=== PATIENT | male | born 1955 | race Caucasian/White ===

== ENCOUNTER 2017-07-27 06:38 | Day surgery (SDC) | payer OTHER ==
[~2017-07-27] VITALS: Ht 175.3 cm; Wt 98.7 kg
[~2017-07-27 06:38] MED LIST: ASPI81EC PO; Aspirin EC81 MG; CLEM1.34; CORGARD20 MG PO; CYAN500 PO; CYCL10 PO; DIPATR PO; DULO30 PO; GABA300 PO; GLIP10; Glipizide ER5 MG PO; Glucophage1000 MG PO; INS70/30PN SC; INSUASPI SC; INSULANPEN SC; LEVFLO500 PO; LOSA50 PO; LOVA20; Loperamide2 MG PO; META800 PO; METF500 PO; METF500C PO; NAPR550 PO; Novolog Fl100 UNIT/1 SC; OXYACE5T PO; OXYC5 PO; PARO10 PO; PARO20 PO; PARO25 PO; PRAV20; PRAV20 PO; Pravachol40 MG PO; Prednisone20 MG PO; RXNAPNA550 PO; Seroquel Xr150 MG PO; TRAM50 PO; VITAMINS A-D-E1 EACH PO; Zofran Odt4 MG SL
[2018-05-17] MEDS ORDERED: CLARITIN10 MG PO (22:33)
== END 2017-07-27 08:42 | disposition home or self-care (01) ==
LOC: ORSCSDS 06:38
PROVIDERS: Internal Medicine Gastroenterology
PROC: 0DJ08ZZ Inspection of Upper Intestinal Tract, Via Natural or Artificial Opening Endoscopic (ICD-10-PCS; principal; 2017-07-27 08:00)
DX: I85.00 Esophageal varices without bleeding (principal); K76.6 Portal hypertension; K31.89 Other diseases of stomach and duodenum; E11.9 Type 2 diabetes mellitus without complications; I10 Essential (primary) hypertension; E78.5 Hyperlipidemia, unspecified; Z87.891 Personal history of nicotine dependence; K74.60 Unspecified cirrhosis of liver; Z79.82 Long term (current) use of aspirin; Z79.4 Long term (current) use of insulin; Z79.899 Other long term (current) drug therapy
CPT/HCPCS: 82947; J0330; J1980; J2405

== ENCOUNTER 2017-10-12 09:04 | Observation (INO) | payer OTHER ==
[~2017-10-12] VITALS: Ht 175.3 cm; Wt 101.0 kg
[2017-10-12 09:44] LABS: PCO2 Arterial 40.1 mmHg (35-45); PO2 Arterial 67.4 mmHg (80-100)
[2017-10-12 09:46] LABS: Alanine Aminotransfer (ALT/SGP 46 U/L (12-78); Albumin, Blood 2.3 g/dL (3.4-5.0); Albumin/Globulin Ratio 0.4 (0.8-1.8); Alk Phos 139 U/L (50-136); Anion Gap 8 mmol/L (6-16); Aspartate Aminotrans (AST/SGOT 53 U/L (12-37); Bilirubin, Total 0.7 mg/dL (0.1-1.0); Blood Urea Nitrogen 18 mg/dL (8-24); Bun/Creatinine Ratio 24.5 (12.0-20.0); CO2, Blood 24 mmol/L (21-32); Calcium, Blood 8.7 mg/dL (8.5-10.1); Chloride, Blood 107 mmol/L (98-108); Creatinine, Blood 0.74 mg/dL (0.60-1.20); Globulin, Blood 5.5 g/dL (2.2-4.0); Glomerular Filtration Rate >60 (60-); Glucose, Blood 168 mg/dL (70-99); Potassium, Blood 3.7 mmol/L (3.5-5.5); Sodium, Blood 139 mmol/L (136-145); Total Protein, Blood 7.8 g/dL (6.4-8.2); Troponin I <0.015 ng/mL (0.000-0.040)
[2017-10-12 09:58] LABS: Influenza A Negative (NEGATIVE); Influenza B Negative (NEGATIVE)
[2017-10-12 10:45] LABS: BASOPHILS ABSOLUTE AUTO 0.02 K/mm3 (0.00-0.23); BASOPHILS PERCENT AUTO 0 % (0-2); EOSINOPHILS ABSOLUTE AUTO 0.26 K/mm3 (0.00-0.68); EOSINOPHILS PERCENT AUTO 5 % (0-6); Hematocrit 37.2 % (37.0-53.0); Hemoglobin 12.5 g/dL (13.5-17.5); IMMATURE GRAN ABSOLUTE AUTO 0.01 K/mm3 (0.00-0.10); IMMATURE GRAN PERCENT AUTO 0 % (0-1); LYMPHOCYTES PERCENT AUTO 42 % (21-46); MONOCYTES ABSOLUTE AUTO 0.21 K/mm3 (0.16-1.47); MONOCYTES PERCENT AUTO 4 % (4-13); Mean Corpuscular HGB 34.6 pg (26.0-34.0); Mean Corpuscular HGB Conc 33.6 g/dL (31.5-36.5); Mean Corpuscular Volume 103 fL (80-100); Mean Platelet Volume 10.6 fL (9.1-12.4); NEUTROPHILS ABSOLUTE AUTO 2.59 K/mm3 (1.96-9.15); NEUTROPHILS PERCENT AUTO 49 % (41-73); Platelet Count 222 K/mm3 (150-400); RDW Standard Deviation 53.5 fL (35.1-46.3); Red Blood Cell Count 3.61 M/mm3 (4.30-5.90); White Blood Cell Count 5.29 K/mm3 (4.00-11.30)
[2017-10-12] MEDS ORDERED: CEFD300 PO (15:36)
[2017-10-12] MEDS ORDERED: Advair Hfa 230-12 GM INH (15:38)
[2017-10-12] MEDS ORDERED: FLONASE ALLERG9.9 ML (15:39)
[2017-10-12] MEDS ORDERED: NADO40 PO (15:41)
[2017-10-12] MEDS ORDERED: PARO20 PO (15:43)
[2017-10-12] MEDS ORDERED: TRAM50 PO (15:44)
[2017-10-12] MEDS ORDERED: Fish Oil 10001000 MG PO (15:48)
== END 2017-10-15 11:05 | disposition home or self-care (01) ==
LOC: ER 09:04 → MEDS 09:05 → ENPENDDIS 10-15 09:51 → MEDS 10-15 11:05
PROVIDERS: Emergency Medicine
DX: R07.9 Chest pain, unspecified (principal); E11.9 Type 2 diabetes mellitus without complications; E78.5 Hyperlipidemia, unspecified; I10 Essential (primary) hypertension; G89.29 Other chronic pain; M54.5 Low back pain; K74.60 Unspecified cirrhosis of liver; K21.9 Gastro-esophageal reflux disease without esophagitis; F32.9 Major depressive disorder, single episode, unspecified; Z90.49 Acquired absence of other specified parts of digestive tract; Z87.891 Personal history of nicotine dependence; Z79.4 Long term (current) use of insulin; Z79.899 Other long term (current) drug therapy
CPT/HCPCS: 36415; 36600; 71046; 78452; 80053; 82803; 82947; 83880; 84484; 85025; 87804; 93005; 93010; 93017; 94762; 96372; 99285; A9500; G0378; J0280; J1650; J1815; J2785

== ENCOUNTER 2018-08-02 09:26 | Inpatient (IN) | payer OTHER ==
[2018-08-01 13:35] LABS: BASOPHILS ABSOLUTE AUTO 0.05 K/mm3 (0.00-0.23); BASOPHILS PERCENT AUTO 1 % (0-2); EOSINOPHILS ABSOLUTE AUTO 0.36 K/mm3 (0.00-0.68); EOSINOPHILS PERCENT AUTO 7 % (0-6); Hematocrit 38.8 % (37.0-53.0); Hemoglobin 13.4 g/dL (13.5-17.5); IMMATURE GRAN ABSOLUTE AUTO 0.01 K/mm3 (0.00-0.10); IMMATURE GRAN PERCENT AUTO 0 % (0-1); LYMPHOCYTES ABSOLUTE AUTO 2.13 K/mm3 (0.84-5.20); LYMPHOCYTES PERCENT AUTO 40 % (21-46); MONOCYTES ABSOLUTE AUTO 0.38 K/mm3 (0.16-1.47); MONOCYTES PERCENT AUTO 7 % (4-13); Mean Corpuscular HGB 35.6 pg (26.0-34.0); Mean Corpuscular HGB Conc 34.5 g/dL (31.5-36.5); Mean Corpuscular Volume 103 fL (80-100); Mean Platelet Volume 10.7 fL (9.1-12.4); NEUTROPHILS ABSOLUTE AUTO 2.36 K/mm3 (1.96-9.15); NEUTROPHILS PERCENT AUTO 45 % (41-73); Platelet Count 136 K/mm3 (150-400); RDW Coefficient Variation 13.1 % (11.7-14.2); RDW Standard Deviation 49.5 fL (35.1-46.3); Red Blood Cell Count 3.76 M/mm3 (4.30-5.90); White Blood Cell Count 5.29 K/mm3 (4.00-11.30)
[2018-08-01 13:51] LABS: International Normalized Ratio 1.14; Prothrombin Time Results 11.7 Sec (9.7-11.5)
[2018-08-01 16:54] LABS: Anion Gap 7 mmol/L (6-16); Blood Urea Nitrogen 16 mg/dL (8-24); Bun/Creatinine Ratio 15.7 (12.0-20.0); CO2, Blood 24 mmol/L (21-32); Calcium, Blood 8.2 mg/dL (8.5-10.1); Chloride, Blood 101 mmol/L (98-108); Creatinine, Blood 1.02 mg/dL (0.60-1.20); Glomerular Filtration Rate >60 (60-); Glucose, Blood 348 mg/dL (70-99); Potassium, Blood 4.1 mmol/L (3.5-5.5); Sodium, Blood 132 mmol/L (136-145)
[~2018-08-02] VITALS: Ht 175.3 cm; Wt 101.0 kg
[~2018-08-02 09:26] MED LIST changes: +Advair Hfa 230-12 GM INH; +CEFD300 PO; +CLARITIN10 MG PO; +FLONASE ALLERG9.9 ML; +Fish Oil 10001000 MG PO; +NADO40 PO
--- NOTE | 2018-08-02 12:19 | NUR ---
PT A&O X 3. BILAT HAND GRAIN DRIER AND PLANTAR FLEXES EQUAL. SMILE SYMETRICAL AND TONGUE THRUST MIDLINE. NO ARM OR LEG DRIFT.
--- NOTE | 2018-08-02 12:24 | NUR ---
DR CHOW IN ROOM TO SEE PT.
[2018-08-02] MEDS ORDERED: ASPI325EC PO (14:57)
[2018-08-02] MEDS ORDERED: CLOP75 PO (14:57)
--- NOTE | 2018-08-02 15:13 | NUR ---
MALE PATIENT BROUGHT BY BED TO ICU11. AWAKE AND ALERT, RIGHT GROIN DRESSING DRY. SMALL HEMATOMA AT SITE. SOFT TO PALPATION. EXCELLANT PEDAL PULSES. LUNGS CLEAR USHA. AT BEDSIDE.IV PATENT IN LEFT ARM
--- NOTE | 2018-08-02 15:51 | NUR ---
RIGHT GROIN REMAINS STABLE. NO BLEEING OR ECCYMOSIS. COMP PAIN AT SIE 8/10. MED WITH 2 NORCO TABLETS.
--- NOTE | 2018-08-02 17:32 | NUR ---
WNTS TO GO HOME. REFUSED DINNER AND ONLY TOOK 10 UNITS OF INSULIN. RIGHT GROIN REMAINS STABE AND COMFORTABLE. NO INCREASED BLEEDING OR HEMATOMA.
--- NOTE | 2018-08-02 18:04 | NUR ---
UP TO CHAIR. COMP OF SEVERE BACK PAIN, BUT UP TO CHAIR AND MUCH IMPROVES. GROIN STILL STABLE.
--- NOTE | 2018-08-02 18:37 | NUR ---
IV DCED IN LEFT ARM. PAT SLOWLY DRESSING WITH 'S ASSISTANCE. COMP OF BACK PAIN AND RIGHT GROIN PAIN. PAT HAS VOIDED 210 ML W/O DIFF. ATE 50% OF DINNER.
--- NOTE | 2018-08-02 18:58 | NUR ---
TAKEN TO CAR BY WHEELCHAIR AFTER MED WITH NORCO.
[2018-08-17] MEDS ORDERED: TRAM50 PO (14:05)
[2018-08-17] MEDS ORDERED: Pravastatin Sod40 MG PO (14:05)
[2018-08-17] MEDS ORDERED: Seroquel Xr150 MG PO (14:06)
[2018-08-17] MEDS ORDERED: NADO40 PO (14:07)
[2018-08-17] MEDS ORDERED: Novolog Fl100 UNIT/1 SC (14:08)
[2018-08-17] MEDS ORDERED: INSULANPEN SC (14:09)
[2018-08-17] MEDS ORDERED: DULOXETINE HCL40 MG PO (14:09)
[2018-08-17] MEDS ORDERED: METF500C PO (14:10)
[2018-08-17] MEDS ORDERED: Flonase 0.05% N16 GM (14:11)
[2018-08-17] MEDS ORDERED: Loratadine10 MG PO (14:11)
[2018-08-17] MEDS ORDERED: PSEUDOEPHEDRINE30 MG PO (14:12)
[2018-08-17] MEDS ORDERED: BACL10 PO (14:13)
== END 2018-08-02 18:50 | disposition home or self-care (01) | DRG 253 ==
LOC: MHTC 09:26 → ICUW 11:23
PROVIDERS: ADMIT Radiology Diagnostic Radiology
PROC: 05753DZ Dilation of Right Subclavian Vein with Intraluminal Device, Percutaneous Approach (ICD-10-PCS; principal; 2018-08-02)
DX: I77.1 Stricture of artery (principal); I85.10 Secondary esophageal varices without bleeding; I35.0 Nonrheumatic aortic (valve) stenosis; E78.5 Hyperlipidemia, unspecified; E11.9 Type 2 diabetes mellitus without complications; I12.9 Hypertensive chronic kidney disease with stage 1 through stage 4 chronic kidney disease, or unspecified chronic kidney disease; E11.22 Type 2 diabetes mellitus with diabetic chronic kidney disease; N18.2 Chronic kidney disease, stage 2 (mild); F41.8 Other specified anxiety disorders; K75.81 Nonalcoholic steatohepatitis (NASH); K74.60 Unspecified cirrhosis of liver; E55.9 Vitamin D deficiency, unspecified; Z87.891 Personal history of nicotine dependence; Z79.84 Long term (current) use of oral hypoglycemic drugs
CPT/HCPCS: 36225; 36415; 37236; 75710; 80048; 82947; 85025; 85610; 99152; 99153; C1760; C1769; C1876; C1887; C1894; J1644; J1815; J2250; J3010; J7030; Q9967

== ENCOUNTER 2018-08-26 07:23 | Day surgery (SDC) | payer OTHER ==
[~2018-08-26] VITALS: Ht 175.3 cm; Wt 100.1 kg
[~2018-08-26 07:23] MED LIST changes: +ASPI325EC PO; +BACL10 PO; +CLOP75 PO; +DULOXETINE HCL40 MG PO; +Flonase 0.05% N16 GM; +Loratadine10 MG PO; +PSEUDOEPHEDRINE30 MG PO; +Pravastatin Sod40 MG PO
[2018-08-26] MEDS ORDERED: ASPI325 (08:17)
--- NOTE | 2018-08-26 08:46 | NUR ---
08/26/18 0846 Cheri Butt PT RESTING IN PREOP WITH CALL LIGHT WITHIN REACH. PREOP TEACHING COMPLETED
--- NOTE | 2018-08-26 15:53 | NUR ---
08/26/18 1553 Cheri Butt DELAYED ENTRY 0950 0902 BP 90/54. DR WHEELER AND FLUIDS WIDE. 0903 BP CUFF CHANGED FROM RADIAL TO BICEP. 09 BP 72/54. DR WHEELER AND EPHEDRINE GIVEN PER ORDERS. SYSTOLIC CONTINUED TO STAY MID 80'S TO LOW 90'S WITH DIASTOLIC >51. A SECOND DOSE OF EPHEDRINE PER ORDERS 908. LAST PROPOFOL DOSE 09. SATS BEGAN TO RIDE 89-91%. OXYGEN INCREASED INTERMITTENTLY VIA NASAL CANNULA WHILE MANAGING BP. AFTER SATS CONTINUED TO RANGE 90-91%, A NONREBREATHER WAS PLACED WITH 10L. 09 BP 90/51. OK TO CONTINUE SEDATION PER DR. PT BEGAN TO MOVE AND GROAN AT 0918. 2MG VERSED GIVEN PER ORDERS. 918 BP 89/52. DR WHEELER AND DR INSTRUCTED TO CONTINUE SEDATION. NO FURTHER ORDERS FOR EPHEDRINE AT THIS TIME. 920 PT SNORING AND BEGAN TO OBSTRUCT. CHIN LIFT AND JAW THRUST PERFORMED. 923 ORAL AIRWAY PLACED AND SATS RAISED TO 98% WITH NONREBREATHER STILL IN PLACE. 925 BP 74/46. DR WHEELER. DR INSTRUCTED TO STOP SEDATION AND TO RECHECK BP. 926 BP 82/43. NO FURTHER ORDERS FOR EPHEDRINE IN OR. ORDERS GIVEN TO RECHECK BP IN SDU AND TO GIVE EPHEDRINE FOR SYSTOLIC <74. VSS IN SDU. SEE VITALS IN
== END 2018-08-26 10:12 | disposition home or self-care (01) ==
LOC: ORSCSDS 07:23
PROVIDERS: Internal Medicine Gastroenterology
PROC: 0DBN8ZX Excision of Sigmoid Colon, Via Natural or Artificial Opening Endoscopic, Diagnostic (ICD-10-PCS; principal; 2018-08-26 08:45)
PROC: 0DBM8ZX Excision of Descending Colon, Via Natural or Artificial Opening Endoscopic, Diagnostic (ICD-10-PCS; principal; 2018-08-26 08:45)
PROC: 0DBL8ZX Excision of Transverse Colon, Via Natural or Artificial Opening Endoscopic, Diagnostic (ICD-10-PCS; principal; 2018-08-26 08:45)
PROC: 0DJ08ZZ Inspection of Upper Intestinal Tract, Via Natural or Artificial Opening Endoscopic (ICD-10-PCS; principal; 2018-08-26 08:45)
DX: Z12.11 Encounter for screening for malignant neoplasm of colon (principal); I85.00 Esophageal varices without bleeding; D12.3 Benign neoplasm of transverse colon; D12.4 Benign neoplasm of descending colon; D12.5 Benign neoplasm of sigmoid colon; K25.0 Acute gastric ulcer with hemorrhage; K26.9 Duodenal ulcer, unspecified as acute or chronic, without hemorrhage or perforation; E78.5 Hyperlipidemia, unspecified; K76.6 Portal hypertension; K31.89 Other diseases of stomach and duodenum; K64.8 Other hemorrhoids; Z87.891 Personal history of nicotine dependence; I10 Essential (primary) hypertension; E11.9 Type 2 diabetes mellitus without complications; Z79.84 Long term (current) use of oral hypoglycemic drugs; Z79.4 Long term (current) use of insulin; Z79.899 Other long term (current) drug therapy
CPT/HCPCS: 82947; 88305; J2250; J7120

== ENCOUNTER 2019-03-02 20:00 | Emergency (ER) | payer OTHER ==
[~2019-03-02] VITALS: Ht 175.3 cm; Wt 102.1 kg
[~2019-03-02 20:00] MED LIST changes: +ASPI325
[2019-03-02] MEDS ORDERED: CLOP75 PO (20:24)
[2019-03-02] MEDS ORDERED: Humalog100 UNIT/1 (20:25)
[2019-03-02 20:35] LABS: BASOPHILS ABSOLUTE AUTO 0.03 K/mm3 (0.00-0.23); BASOPHILS PERCENT AUTO 0 % (0-2); EOSINOPHILS ABSOLUTE AUTO 0.16 K/mm3 (0.00-0.68); EOSINOPHILS PERCENT AUTO 2 % (0-6); Hematocrit 40.6 % (37.0-53.0); IMMATURE GRAN ABSOLUTE AUTO 0.02 K/mm3 (0.00-0.10); IMMATURE GRAN PERCENT AUTO 0 % (0-1); LYMPHOCYTES ABSOLUTE AUTO 2.87 K/mm3 (0.84-5.20); LYMPHOCYTES PERCENT AUTO 42 % (21-46); MONOCYTES ABSOLUTE AUTO 0.47 K/mm3 (0.16-1.47); MONOCYTES PERCENT AUTO 7 % (4-13); Mean Corpuscular HGB 36.5 pg (26.0-34.0); Mean Corpuscular HGB Conc 34.5 g/dL (31.5-36.5); Mean Corpuscular Volume 106 fL (80-100); Mean Platelet Volume 11.4 fL (9.1-12.4); NEUTROPHILS ABSOLUTE AUTO 3.33 K/mm3 (1.96-9.15); NEUTROPHILS PERCENT AUTO 49 % (41-73); Platelet Count 129 K/mm3 (150-400); RDW Coefficient Variation 14.5 % (11.7-14.2); RDW Standard Deviation 56.6 fL (35.1-46.3); Red Blood Cell Count 3.84 M/mm3 (4.30-5.90); White Blood Cell Count 6.88 K/mm3 (4.00-11.30)
[2019-03-02 20:48] LABS: Alanine Aminotransfer (ALT/SGP 62 U/L (12-78); Albumin, Blood 2.8 g/dL (3.4-5.0); Albumin/Globulin Ratio 0.5 (0.8-1.8); Alk Phos 145 U/L (50-136); Anion Gap 7 mmol/L (6-16); Aspartate Aminotrans (AST/SGOT 58 U/L (12-37); Bilirubin, Total 1.3 mg/dL (0.1-1.0); Blood Urea Nitrogen 28 mg/dL (8-24); Bun/Creatinine Ratio 13.3 (12.0-20.0); CO2, Blood 26 mmol/L (21-32); Calcium, Blood 8.4 mg/dL (8.5-10.1); Chloride, Blood 98 mmol/L (98-108); Creatinine, Blood 2.11 mg/dL (0.60-1.20); Ethanol (Alcohol), Blood, Med <3 mg/dL; Globulin, Blood 5.2 g/dL (2.2-4.0); Glomerular Filtration Rate 34 (60-); Glucose, Blood 481 mg/dL (70-99); Potassium, Blood 5.3 mmol/L (3.5-5.5); Sodium, Blood 131 mmol/L (136-145)
[2019-03-02 21:32] LABS: Troponin I <0.015 ng/mL (0.000-0.040)
[2019-03-02 21:59] LABS: Source, Urine Clean Catch
[2019-03-02 22:02] LABS: Bilirubin, Urine Neg (Neg); Blood, Urine Neg (Neg); Glucose Qualitative, Urine 4+ (Neg); Ketones, Urine Neg (Neg); Leukocyte Esterase, Urine Neg (Neg); Nitrite, Urine Neg (Neg); Protein, Urine 1+ (Neg); Urobilinogen, Urine 2+ (Normal)
[2019-03-02 22:14] LABS: Appearance, Urine Clear (Clear); Color, Urine Yellow (P-Yellow)
[2019-03-02 22:25] LABS: U Amphetamine Screen Not Detected; U Barbituate Screen Not Detected; U Benzodiazapine Screen Not Detected; U Buprenorphine Screen Not Detected; U Cannabinoids Screen Not Detected; U Cocaine Screen Not Detected; U Methadone Screen Not Detected; U Methamphetamine Screen Not Detected; U Opiates Screen Not Detected; U Oxycodone Screen Not Detected; U Phencyclidine Screen Not Detected; U Propoxyphene Screen Not Detected
== END 2019-03-02 23:21 | disposition home or self-care (01) ==
LOC: ER 20:00
PROVIDERS: Emergency Medicine
DX: N17.9 Acute kidney failure, unspecified (principal); E86.0 Dehydration; G89.29 Other chronic pain; E11.9 Type 2 diabetes mellitus without complications; Z87.891 Personal history of nicotine dependence
CPT/HCPCS: 71046; 80053; 82947; 83690; 84443; 84484; 85025; 93005; 93010; 99284-25; G0480; J7120

== ENCOUNTER 2019-06-03 04:13 | Inpatient (IN) | payer OTHER ==
[~2019-06-03] VITALS: Ht 175.3 cm; Wt 106.9 kg
[~2019-06-03 04:13] MED LIST changes: +Humalog100 UNIT/1
[2019-06-03 04:55] LABS: BASOPHILS ABSOLUTE AUTO 0.04 K/mm3 (0.00-0.23); BASOPHILS PERCENT AUTO 0 % (0-2); EOSINOPHILS ABSOLUTE AUTO 0.12 K/mm3 (0.00-0.68); EOSINOPHILS PERCENT AUTO 1 % (0-6); Hematocrit 36.7 % (37.0-53.0); Hemoglobin 12.2 g/dL (13.5-17.5); IMMATURE GRAN ABSOLUTE AUTO 0.03 K/mm3 (0.00-0.10); IMMATURE GRAN PERCENT AUTO 0 % (0-1); LYMPHOCYTES ABSOLUTE AUTO 2.96 K/mm3 (0.84-5.20); LYMPHOCYTES PERCENT AUTO 29 % (21-46); MONOCYTES ABSOLUTE AUTO 0.41 K/mm3 (0.16-1.47); MONOCYTES PERCENT AUTO 4 % (4-13); Mean Corpuscular HGB 35.4 pg (26.0-34.0); Mean Corpuscular HGB Conc 33.2 g/dL (31.5-36.5); Mean Corpuscular Volume 106 fL (80-100); Mean Platelet Volume 10.7 fL (9.1-12.4); NEUTROPHILS ABSOLUTE AUTO 6.53 K/mm3 (1.96-9.15); NEUTROPHILS PERCENT AUTO 65 % (41-73); Platelet Count 182 K/mm3 (150-400); RDW Coefficient Variation 13.2 % (11.7-14.2); RDW Standard Deviation 51.2 fL (35.1-46.3); Red Blood Cell Count 3.45 M/mm3 (4.30-5.90); White Blood Cell Count 10.09 K/mm3 (4.00-11.30)
[2019-06-03 05:13] LABS: Troponin I <0.015 ng/mL (0.000-0.040)
[2019-06-03 05:16] LABS: Alanine Aminotransfer (ALT/SGP 39 U/L (12-78); Albumin, Blood 2.3 g/dL (3.4-5.0); Albumin/Globulin Ratio 0.5 (0.8-1.8); Alk Phos 129 U/L (50-136); Anion Gap 9 mmol/L (6-16); Aspartate Aminotrans (AST/SGOT 37 U/L (12-37); Bilirubin, Total 1.1 mg/dL (0.1-1.0); Blood Urea Nitrogen 37 mg/dL (8-24); Bun/Creatinine Ratio 46.4 (12.0-20.0); CO2, Blood 21 mmol/L (21-32); Calcium, Blood 8.4 mg/dL (8.5-10.1); Chloride, Blood 107 mmol/L (98-108); Globulin, Blood 4.8 g/dL (2.2-4.0); Glomerular Filtration Rate >60 (60-); Glucose, Blood 292 mg/dL (70-99); Potassium, Blood 6.1 mmol/L (3.5-5.5); Sodium, Blood 137 mmol/L (136-145); Total Protein, Blood 7.1 g/dL (6.4-8.2)
[2019-06-03] MEDS ORDERED: CYCL10 PO (06:51)
[2019-06-03] MEDS ORDERED: GABA300 PO (06:52)
[2019-06-03] MEDS ORDERED: LOSA50 PO (06:53)
[2019-06-03] MEDS ORDERED: Novolin R100 UNIT/M SC (06:54)
[2019-06-03 07:25] LABS: Calcium, Ionized (POC) 1.04 mmol/L (1.10-1.46); Chloride (POC) 105 mmol/L (98-108); Creatinine (POC) 0.8 mg/dL (0.8-1.3); Glucose (ISTAT POC) 325 mg/dL (70-99); Hemoglobin (POC) 10.2 g/dL (13.5-17.5); Potassium (POC) 6.3 mmol/L (3.5-5.5); Sodium (POC) 136 mmol/L (135-148); Total CO2 (POC) 23 mmol/L (21-32)
--- NOTE | 2019-06-03 11:00 | NUR ---
ADMIT NOTE- PT UNCONCIOUS OBTUNDED ON ARRIVAL TO MEDICAL FLOOR. PT HAS NO S&S OF DISTRESS NOTED AT THE TIME OF ARRIVAL. PT ON 2L O2 VIA NC. PER FAMILY HE IS LIKE THIS AT HOME OFF AND ON. PT BP HAS BEEN LOW SINCE ARRIVAL. PT IS DIABETIC ON ORAL MEDICATIONS AND INSULIN. PRN BLOOD SUGAR CHECKS ORDERED. PT UNABLE TO ANSWER VERBAL QUESTIONS, MEDICAL Hx COMPLETED FROM PAST MEDICAL CHARTING.
--- NOTE | 2019-06-03 12:25 | NUR ---
POC BG SHOWED BG 397. IV INSULIN GIVEN. CALLED DR TORRES HOLD D50 ORDERED AND RECHECK BG IN 30 MINUTES. PRN ORDERT FOR BG AT THIS TIME.
--- NOTE | 2019-06-03 13:20 | NUR ---
PT RECIEVED LOVENOX SHOT ORDERED. AFTER ADMINISTRATION PT SPOUSE TOLD STAFF ABOUT THE PT BLACK STOOL DIARRHEA OVER THE PAST TWO DAYS. WILL CALL AND SPEAK TO DR TORRES ABOUT THIS.
[2019-06-03 14:32] LABS: Potassium, Blood 5.5 mmol/L (3.5-5.5); Troponin I <0.015 ng/mL (0.000-0.040)
--- NOTE | 2019-06-03 14:45 | NUR ---
SPOKE TO DR TORRES- ORDER TO DC LOVENOX AND PLAVIX WELL DC PROPRANOLOL PT BP IS LOW.
[2019-06-03] MEDS ORDERED: TRAM50 PO (17:37)
--- NOTE | 2019-06-03 17:51 | NUR ---
SPOKE TO DR TORRES PT HAD CRITICAL LACTIC AT 2.8. IVF ORDERED EARLIER, NOT STARTED UNTIL; JUST PRIOR TO CRITICAL VALUE NOTIFICATION D/T LOSS OF IV ACCESS. NEW ORDER RECIEVED FOR 2L LR BOLUS STARTED IMMEDIATELY.
--- NOTE | 2019-06-03 17:56 | NUR ---
PT HAS HAD NO CHANGE IN LOC SINCE ADMIT. CRITICAL VALUE POTASSIUM CORRECTED WITH IV INSULIN. PT BG REMAINS IN THE 400 RANGE. LR BOLUS RUNNING INTO NEW 20G IV IN THE LEFT WRIST. NO S&S OF DISTRESS NOTED AT THIS TIME WILL CONT TO MONITOR. PT LAST SBP WAS 106. TELE SHOWS NSR. ACCESSORY MUSCLE USE ON EXHALE WITH EACH RESPERATION. DR AWARE OF ALL. HOME MED REC COMPLETED WITH MED LIST FROM PHARMACY. ADMIT COMPLETED WITH MEDICAL RECORD. GUIAC STOOL ORDERED NO STOOL YET, BLACK SMEAR NOTED IN ATTENDS AT THIS TIME WILL CHANGE SHORTLY.
--- NOTE | 2019-06-03 18:58 | NUR ---
CALLED DR TORRES- PT SBP 10 POINTS LOWER AFTER THE FIRST LITER OF LR WAS INFUSED. RECIEVED AN ORDER FOR 3RD LITER LR BOLUS. NURSE NOTIFY PLACED IN PT CHART MONITOR PT VITALS AFTER 3RD LITER LR IF PT SBP IS 100 OR GREATER THEN PT CAN STAY MEDICAL STATUS HOWEVER; IF SBP IS LESS THAN 100 PT TO BE TRANSFERED TO PCU AND IF AFTER 3 LITERS BOLUS SBP IS LESS THAN 90 PT TO TRANSFER TO ICU. WILL PASS ON TO NIGHT RN IN REPORT.
[2019-06-04 04:18] LABS: Hematocrit 30.7 % (37.0-53.0); Hemoglobin 10.4 g/dL (13.5-17.5); Mean Corpuscular HGB 36.6 pg (26.0-34.0); Mean Corpuscular HGB Conc 33.9 g/dL (31.5-36.5); Mean Corpuscular Volume 108 fL (80-100); Mean Platelet Volume 10.5 fL (9.1-12.4); Platelet Count 168 K/mm3 (150-400); RDW Coefficient Variation 13.8 % (11.7-14.2); RDW Standard Deviation 55.7 fL (35.1-46.3); Red Blood Cell Count 2.84 M/mm3 (4.30-5.90); White Blood Cell Count 11.36 K/mm3 (4.00-11.30)
[2019-06-04 04:43] LABS: Anion Gap 8 mmol/L (6-16); Blood Urea Nitrogen 49 mg/dL (8-24); Bun/Creatinine Ratio 41.2 (12.0-20.0); CO2, Blood 24 mmol/L (21-32); Chloride, Blood 112 mmol/L (98-108); Creatinine, Blood 1.19 mg/dL (0.60-1.20); Glomerular Filtration Rate >60 (60-); Glucose, Blood 260 mg/dL (70-99); Potassium, Blood 3.7 mmol/L (3.5-5.5); Sodium, Blood 144 mmol/L (136-145)
--- NOTE | 2019-06-04 06:23 | NUR ---
END OF SHIFT SUMMARY PT TO UNIT FROM [facility] @7862. PT SOMNOLENT BUT DOES AWAKEN SLIGHLTY TO VERBVAL PROMPTING. PT STATES CORRECT AND KNOWS HE IS IN HOSPITAL. PT HAS SHOWN SOME IMPROVEMENT IN THIS AREA AND HAS BEEN AWAKE ENOUGH TO GET UP TO GO TO BATHROOM. WOULD NOT RECOMMEND THIS DUE TO PT UNSTEADINESS BUT PT WAS RESIDENTIAL TO BATHROOM BEFORE THIS RN MADE IT TO ROOM R/T BED ALARM DELAY. PT HAS PREDOMINANT;LY BEEN RESTING T/O NIGHT. VSS, RR SLOW BUT STILL >12. PT INITIALLY PRESENTED WITH DEEP STOMACH BREATHING BUT THIS HAS DECREASED. LUNGS CRACKLY IN THE BASES. REPEAT CXR COMPLETE. RECEIVED 4444 MLS OF LR SINCE ADMIT. PRODUCING URINE, INCONTINENT. CBGS SHOW IMPROVEMENT WITH Q6 COVERAGE. LACTIC TRENDING DOWN. CALL LIGHT WITHIN REACH. WILL CONTINUE TO MONITOR UNTIL SHIFT CHANGE.
--- NOTE | 2019-06-04 18:31 | NUR ---
SUMMAYR- PT CONTINUES TO BE LETHARGIC. AWAKENS FOR SHORT PERIODS WITH CONSTANT STIM TO STAY AWAKE. ALERT AND ORIENTED TO BIRTHDATE, PLACE, FAMILY, PRESIDENT AND YEAR. SPEECH THICK AND DELAYED, SOMETIMES HAVE TO ASK LOUD MULT TIMES. PT GETS OOB, USUALLY SETTING OFF BED ALARM, CONTINENT OF URINE USING BSC. IVF INFUSING AT 150ML/HR. TOLERATED MASHED POTETOES FOR LUNCH SITTING UP AT EDGE OF BED. TO TIRED TO KEEP AWAKE FOR BREAKFAST, A FEW BITES FOR DINNER. STARTED COUGHING ON CHICKEN AND STOPPED FEED. AMMONIA HIGH AT 98 THIS AM EXPLAINING INCREASED LETHARGY. STARTED LACTALOSE AT LUNCH. NO BM YET, BUT PT SEEMS TO BE AWAKENING MORE READILY, EVEN OPENED EYES WIDE AND CALLED ME BY NAME, READING MY NAME KOBI. CONT Q6 BLOOD SUGARS, WITH SSI COVERAGE.
[2019-06-05 03:57] LABS: Hematocrit 25.3 % (37.0-53.0); Hemoglobin 8.2 g/dL (13.5-17.5); Mean Corpuscular HGB 35.8 pg (26.0-34.0); Mean Corpuscular HGB Conc 32.4 g/dL (31.5-36.5); Mean Platelet Volume 10.4 fL (9.1-12.4); NRBC ABSOLUTE 0.03 K/mm3 (0.00-0.02); NRBC Auto 0.2 /100 WBC (0.0-0.2); Platelet Count 199 K/mm3 (150-400); RDW Coefficient Variation 14.2 % (11.7-14.2); RDW Standard Deviation 56.4 fL (35.1-46.3); Red Blood Cell Count 2.29 M/mm3 (4.30-5.90); White Blood Cell Count 12.42 K/mm3 (4.00-11.30)
[2019-06-05 04:19] LABS: Anion Gap 8 mmol/L (6-16); Blood Urea Nitrogen 39 mg/dL (8-24); Bun/Creatinine Ratio 44.2 (12.0-20.0); CO2, Blood 25 mmol/L (21-32); Calcium, Blood 8.1 mg/dL (8.5-10.1); Chloride, Blood 115 mmol/L (98-108); Creatinine, Blood 0.88 mg/dL (0.60-1.20); Glomerular Filtration Rate >60 (60-); Glucose, Blood 222 mg/dL (70-99); Potassium, Blood 3.8 mmol/L (3.5-5.5); Sodium, Blood 148 mmol/L (136-145)
[2019-06-05 04:21] LABS: Mean Corpuscular Volume 111 fL (80-100)
--- NOTE | 2019-06-05 05:34 | NUR ---
END OF SHIFT SUMMARY NO QACUTE CHANGES THIS SHIFT. LACTULOSE HAS BEEN SUCCESFUL IN PRODUCING MULTIPLE BM'S THIS SHIFT. BM'S DARK BLACK TO BROWN. THIS WAS DISCUSSED WITH PROVIDER. HGB DROPPED, ALSO DISCUSSED WITH PROVIDER AND WILL REDRAW LABS IN THE AM. PT'S MENTATION HAS RAISED AND HAS SHOWN INCREASING AWARENESS BUT WITH THIS HAS COME INCREASED FALL RISK DUE TO GETTING OUT OF BED TO VOID. PT HAS STOOD OUT OF BED AND VOIDED AND HAD BM'S ALL OVER THE FLOOR MULTIPLE TIMES THIS SHIFT. BED ALARM IS IN PLACE AND HAS BEEN THE WHOLE NIGHT. PT RESTLESS AT TIMES. PT DOES FOLLOW SOME DIRECTION BUT MOSTLY JUST GROANS. LR CONTINUE TO INFUSE. ATTENDS IN PLACE. CONSTANTLY CHECKING ON PT TO DETERMINE FALL RISK AND SAFETY. VSS. WILL CONTINUE TO MONITOR UNTIL SHIFT CHANGE.
[2019-06-05 06:29] LABS: Stool Occult Blood Guaiac 1 Pos (Neg)
[2019-06-05 08:58] LABS: Hematocrit 23.7 % (37.0-53.0); Hemoglobin 7.9 g/dL (13.5-17.5); Mean Corpuscular HGB 36.4 pg (26.0-34.0); Mean Corpuscular HGB Conc 33.3 g/dL (31.5-36.5); Mean Corpuscular Volume 109 fL (80-100); Mean Platelet Volume 10.1 fL (9.1-12.4); NRBC ABSOLUTE 0.04 K/mm3 (0.00-0.02); NRBC Auto 0.3 /100 WBC (0.0-0.2); Platelet Count 176 K/mm3 (150-400); RDW Coefficient Variation 14.2 % (11.7-14.2); RDW Standard Deviation 55.1 fL (35.1-46.3); Red Blood Cell Count 2.17 M/mm3 (4.30-5.90); White Blood Cell Count 11.78 K/mm3 (4.00-11.30)
[2019-06-05 13:27] LABS: Bilirubin, Urine Neg (Neg); Blood, Urine Neg (Neg); Glucose Qualitative, Urine 4+ (Neg); Ketones, Urine 2+ (Neg); Leukocyte Esterase, Urine Neg (Neg); Nitrite, Urine Neg (Neg); Protein, Urine Neg (Neg); Source, Urine Clean Catch; Urobilinogen, Urine NORM (Normal)
[2019-06-05 13:30] LABS: Appearance, Urine Clear (Clear); Color, Urine Yellow (P-Yellow)
[2019-06-05 15:48] LABS: Hematocrit 24.8 % (37.0-53.0); Hemoglobin 7.8 g/dL (13.5-17.5)
--- NOTE | 2019-06-05 16:28 | NUR ---
SHIFT SUMMARY PT RESTING IN BED THROUGHOUT THE DAY. LETHARGIC, AWAKES AT TIMES TO VERBAL STIMULI, BUT IS UNABLE TO FOLLOW COMMANDS WHEN ASKED. PT REPOSITIONING HIMSELF SIDE TO SIDE NEEDED, GOOD STRENGTH NOTED. PT UNABLE TO SWALLOW MEDICATIONS DUE TO INABILITY TO FOLLOW INSTRUCTIONS TO SWALLOW LIQUID MEDS. PT IS AN ASPIRATION RISK AT THIS TIME. PT GIVEN LACTULOSE PER RECTUM, PT UNABLE TO HOLD LACTULOSE ENEMA IN RECTUM. DARK STOOL AND LACTULOSE LEAKED FROM RECTUM. PT INCONTINENT OF URINE AND STOOL, PT BECOMES MORE AWAKE WHEN HE NEEDS TO URINATE OR HAVE A BM. WHEN ATTEMPTING TO GET PT UP TO BEDSIDE COMMODE, PT STARTED TO SIT UP, BUT THEN LAID BACK DOWN AND FELL ASLEEP. ATTENDS CHANGED THROUGHOUT THE DAY. LUNG SOUNDS CLEAR, DIMINISHED BASES. DYSPNEA WITH EXERTION. ON ROOM AIR, SATURATIONS 90-94%. PT ELEVATED PULSE RATE WHEN BEING ASSESSED, BUT SETTLES BACK TO NORMAL WHEN RESTING. FAMILY AT BEDSIDE THROUGHOUT THE DAY. WILL CONTINUE TO MONITOR AND REPORT OFF TO VOLUNTEER SERVICES SUPERVISOR RN.
--- NOTE | 2019-06-06 02:08 | NUR ---
RESTRAINTS ORDERS RECEIVED VIA NURSE NOTIFY AND VO FROM DR OG FOR BILATERAL SOFT WRIST RESTRAINTS AND SIDERAILS X4 DUE TO PT AMS AND PULLING AT DOBHOFF. ORDERS RECEIVED @202906/05/19. UNABLE TO PLACE ORDERS IN MEDITECH UNTIL AFTER 06/06/19 SYSTEM WILL NOT ALLOW BACKTIMING OF THIS. UPON DISCUSSION WITH SECURITY PROJECT MANAGER OF PCU AND ICU, REESE, INITIAL ORDERS PLACED ON PAPER COPY FOR 202906/05/19 BUT MEDITECH ORDER STILL HAD TO BE PLACED AT 06/06/19. WILL CHART APPLICATION IN [employer] AT 202906/05/19 AND Q2HR REASSESMENTS STEMMING FROM THAT POINT ON THE EVEN HOURS. PAPER ORDER PLACED IN CHART AND SIGNED BY THIS RN.
[2019-06-06 05:46] LABS: BASOPHILS ABSOLUTE AUTO 0.08 K/mm3 (0.00-0.23); BASOPHILS PERCENT AUTO 1 % (0-2); EOSINOPHILS ABSOLUTE AUTO 0.14 K/mm3 (0.00-0.68); EOSINOPHILS PERCENT AUTO 1 % (0-6); Hematocrit 23.5 % (37.0-53.0); Hemoglobin 7.6 g/dL (13.5-17.5); Mean Corpuscular HGB 35.8 pg (26.0-34.0); Mean Corpuscular HGB Conc 32.3 g/dL (31.5-36.5); Mean Corpuscular Volume 111 fL (80-100); Mean Platelet Volume 10.2 fL (9.1-12.4); NRBC ABSOLUTE 0.14 K/mm3 (0.00-0.02); NRBC Auto 0.9 /100 WBC (0.0-0.2); Platelet Count 211 K/mm3 (150-400); RDW Coefficient Variation 14.9 % (11.7-14.2); RDW Standard Deviation 57.4 fL (35.1-46.3); Red Blood Cell Count 2.12 M/mm3 (4.30-5.90)
[2019-06-06 06:06] LABS: IMMATURE GRAN ABSOLUTE AUTO 0.14 K/mm3 (0.00-0.10); IMMATURE GRAN PERCENT AUTO 1 % (0-1); LYMPHOCYTES ABSOLUTE AUTO 7.13 K/mm3 (0.84-5.20); LYMPHOCYTES PERCENT AUTO 44 % (21-46); MONOCYTES ABSOLUTE AUTO 1.28 K/mm3 (0.16-1.47); MONOCYTES PERCENT AUTO 8 % (4-13); NEUTROPHILS ABSOLUTE AUTO 7.53 K/mm3 (1.96-9.15); NEUTROPHILS PERCENT AUTO 46 % (41-73)
--- NOTE | 2019-06-06 06:18 | NUR ---
PROVIDER LENKA NOTIFIED OF NEW HGB TRENDING DOWN WITH LARGE MELENA BM'S. UPDATED ON MENTAL STATUS PROGRESSION. ORDERS PLACED TO RECHECK CBC @1000
--- NOTE | 2019-06-06 07:46 | NUR ---
END OF SHIFT SUMMARY PT OBTUNDED AT BEGINNING OF SHOFT, HAS SHOPWN IMPROVEMENT. BY THE END OF SHIFT, PT OPENS EYES INTERMITTENRTLY ANSD TRACKS RN IN ROOM. DOBHOFF PLACED ;AST NIGHT BY RIBBON CUTTER [place], BLOODY NOSE RESULTED. CLEANED TO BEST OF ABILITY THAT PT WOULD TOLERTAE. DOBHOFF PLACEMENT CONFIRMED BY PHYSICIAN, GASTRIC MATTER CAN BE ASPIRATED. PT PLACED IN RESTRAINTS DUE TO PULLING AT DOBHOFF, SEE NOTES REGARDING ORDERS. HAS TOELRATED RESTRAINTS WELL. PT HAD 1 VERY LARGE BLACK LIQUID BM AND 1 MEDIUM BM POST LACTULOSE. HGB TRENDED DOWN, SEE NOTE REGARDING PHYSICIAN. PT INCONTINENT, BRIEF IN PLACE. DR OG AWARE OF MENTATION STATUS. ORAL CARE PROVIDED MULTIPLE TIMES L;AST NIGHT. ATTEMPTS MADE TO KEEP PT COMFORTABLE POSSIBLE. PT HAS APEARED TO HAVE RESTED SOME T/O THE NIGHT. SON IN ROOM T/O NIGHT. VSS. REPORT GIVEN TO ONCOMING RN.
[2019-06-06 11:28] LABS: BASOPHILS ABSOLUTE AUTO 0.07 K/mm3 (0.00-0.23); BASOPHILS PERCENT AUTO 1 % (0-2); EOSINOPHILS ABSOLUTE AUTO 0.27 K/mm3 (0.00-0.68); EOSINOPHILS PERCENT AUTO 2 % (0-6); Hematocrit 24.9 % (37.0-53.0); Hemoglobin 7.9 g/dL (13.5-17.5); IMMATURE GRAN ABSOLUTE AUTO 0.09 K/mm3 (0.00-0.10); IMMATURE GRAN PERCENT AUTO 1 % (0-1); LYMPHOCYTES ABSOLUTE AUTO 6.36 K/mm3 (0.84-5.20); LYMPHOCYTES PERCENT AUTO 45 % (21-46); MONOCYTES ABSOLUTE AUTO 1.08 K/mm3 (0.16-1.47); MONOCYTES PERCENT AUTO 8 % (4-13); Mean Corpuscular HGB 36.2 pg (26.0-34.0); Mean Corpuscular HGB Conc 31.7 g/dL (31.5-36.5); Mean Platelet Volume 10.3 fL (9.1-12.4); NEUTROPHILS ABSOLUTE AUTO 6.27 K/mm3 (1.96-9.15); NEUTROPHILS PERCENT AUTO 44 % (41-73); NRBC ABSOLUTE 0.13 K/mm3 (0.00-0.02); NRBC Auto 0.9 /100 WBC (0.0-0.2); Platelet Count 207 K/mm3 (150-400); Red Blood Cell Count 2.18 M/mm3 (4.30-5.90); White Blood Cell Count 14.14 K/mm3 (4.00-11.30)
[2019-06-06 11:32] LABS: Mean Corpuscular Volume 114 fL (80-100)
--- NOTE | 2019-06-06 12:42 | NUR ---
06/06/19 1242 Mariaa Glez PROCEDURE ROOM ENDO #2. MONITOR INTACT WITH CONTINUOUS PULSE OXIMETRY AND INTERMITTENT BP.
--- NOTE | 2019-06-06 13:29 | NUR ---
PATIENT NOT GRIMMACING SINCE IV FENTANYL. VSS. BREATHING 3L O2/NC. AT BEDSIDE STATES HE APPEARS TO BE AT BASELINE. HE MUMBLES WHEN TALKED AND TALKED TO, BUT EYES REMAIN CLOSED.
--- NOTE | 2019-06-06 19:26 | NUR ---
PT HAD SCOPE PROCEDURE TODAY; PT BECOMING MORE ALERT THROUGHOUT DAY; PT ON 3L NC LUNG SOUNDS CLEAR T/O; NO COUGH NOTED; AND FAMILY AT BEDSIDE; LACTULOSE GIVEN THROUGH DOBHOFF UNTIL PT PULLED DOBHOFF AND O2 LINES AT SHIFT CHANGE; PT EXPERIENCING BLACK TARRY STOOLS AND FREQUENT GAS; CALL LIGHT IN REACH BED IN LOWEST POSITION; HAND OFF GIVEN TO NOC RN.
--- NOTE | 2019-06-06 20:00 | NUR ---
FAMILY AT BEDSIDE PT IS RESTING QUIETLY. HE WILL RESPOND TO VERBAL STIMULI. HE WAS ABLE TO RECOGNIZE HIS SON AT THE BEDSIDE BUT MOST OF HIS RESPONSES ARE INAPROPRIATE TO THE CONTENT OF THE QUESTION. THE PT WAS ABLE TO SWALLOW HIS LACTULOSE WITH A FEW BITES OF JELLO SO THE REPLACEMENT OF THE DOBHOFF WAS WITHELD AT THIS TIME. PT IS COMPLIANT WITH CARE, AND SLEEPY AT THIS TIME. HIS SON IS AT THE BEDSIDE. BED ALARM IS ON, CALL LIGHT IN REACH. [facility]
[2019-06-07 04:21] LABS: Hematocrit 23.8 % (37.0-53.0); Hemoglobin 7.6 g/dL (13.5-17.5); Mean Corpuscular HGB 37.1 pg (26.0-34.0); Mean Corpuscular HGB Conc 31.9 g/dL (31.5-36.5); Mean Corpuscular Volume 116 fL (80-100); Mean Platelet Volume 9.7 fL (9.1-12.4); NRBC ABSOLUTE 0.12 K/mm3 (0.00-0.02); NRBC Auto 0.9 /100 WBC (0.0-0.2); Platelet Count 211 K/mm3 (150-400); Red Blood Cell Count 2.05 M/mm3 (4.30-5.90); White Blood Cell Count 12.74 K/mm3 (4.00-11.30)
[2019-06-07 04:42] LABS: Anion Gap 8 mmol/L (6-16); Blood Urea Nitrogen 32 mg/dL (8-24); Bun/Creatinine Ratio 31.1 (12.0-20.0); CO2, Blood 26 mmol/L (21-32); Calcium, Blood 7.9 mg/dL (8.5-10.1); Chloride, Blood 116 mmol/L (98-108); Creatinine, Blood 1.03 mg/dL (0.60-1.20); Glomerular Filtration Rate >60 (60-); Glucose, Blood 223 mg/dL (70-99); Potassium, Blood 3.4 mmol/L (3.5-5.5); Sodium, Blood 150 mmol/L (136-145)
--- NOTE | 2019-06-07 07:25 | NUR ---
SUMMARY PT HAD AN UNEVENTFUL NIGHT. HE IS STARTING TO CLEAR IN MENTATION. HE WAS ABLE TO DRINK SOME FLUIDS AND SPEAK/RECOGNIZE HIS 2 CHILDREN AT THE BEDSIDE. HE WOULD HAVE LONGER PERIODS OF BEING AWAKE AFTER ATTENDS CHANGES. PT HAS BEEN COMPLIANT WITH CARE AND PLEASANT. VSS, 2 LO2 VIA NC, BED ALARM FOR SAFETY. DAUGHTER IS AT THE BEDSIDE THIS AM. REPORT GIVEN TO DAY RN.
--- NOTE | 2019-06-07 09:39 | NUR ---
CALLED DR TORRES ABOUT PT'S CBG 440 AND NEW FOR FOR D5W. ORDERS RECEIVED TO D/C FLUIDS AND CHANGE LANTUS.
--- NOTE | 2019-06-07 17:57 | NUR ---
SHIFT SUMMARY PT HAS HAD A GOOD DAY. PT WAS ORIENTED X4 AND WAS ABLE TO PARTICIPATE WITH PHYSICAL THERAPY TODAY. PT'S CBG WAS ELEVATED THIS AM, BUT HAS IMPROVED THIS EVENING. PO FLUIDS HAVE BEEN TOLERATED WELL BY PT. PT IS RUNNING SR ON TELEMETRY.
[2019-06-08 03:58] LABS: Hematocrit 24.1 % (37.0-53.0); Hemoglobin 7.7 g/dL (13.5-17.5); Mean Corpuscular HGB 36.3 pg (26.0-34.0); Mean Corpuscular Volume 114 fL (80-100); Mean Platelet Volume 9.7 fL (9.1-12.4); NRBC ABSOLUTE 0.05 K/mm3 (0.00-0.02); NRBC Auto 0.5 /100 WBC (0.0-0.2); Platelet Count 182 K/mm3 (150-400); RDW Coefficient Variation 16.2 % (11.7-14.2); Red Blood Cell Count 2.12 M/mm3 (4.30-5.90); White Blood Cell Count 10.41 K/mm3 (4.00-11.30)
[2019-06-08 04:18] LABS: Anion Gap 5 mmol/L (6-16); Blood Urea Nitrogen 17 mg/dL (8-24); Bun/Creatinine Ratio 19.8 (12.0-20.0); CO2, Blood 26 mmol/L (21-32); Calcium, Blood 7.3 mg/dL (8.5-10.1); Chloride, Blood 113 mmol/L (98-108); Creatinine, Blood 0.86 mg/dL (0.60-1.20); Glomerular Filtration Rate >60 (60-); Glucose, Blood 73 mg/dL (70-99); Potassium, Blood 3.2 mmol/L (3.5-5.5); Sodium, Blood 144 mmol/L (136-145)
--- NOTE | 2019-06-08 07:44 | NUR ---
SHIFT SUMMARY PATIENT PLEASENT AND COOPERATIVE THROUGHOUT THE NIGHT. PATIENT WAS ALERT AND ORIENTED LAST NIGHT. PATIENT CALLED APPROPRIATLY. PATIENT APPEARED TO SLEEP WELL LAST NIGHT. PATIENT'S FAMILY MEMBER STAYED THE NIGHT AT THE BEDSIDE. PATIENT CURRENTLY AWAKE AND WATCHING TV, TALKING WTIH FAMILY MEMBER. REPORT GIVEN TO ONCOMING RN.
[2019-06-08] MEDS ORDERED: PROP10 PO (14:48)
[2019-06-08] MEDS ORDERED: LACT10SY PO (14:49)
[2019-06-08] MEDS ORDERED: FERSU300 PO (14:50)
[2019-06-08] MEDS ORDERED: OMEPRAZOLE20 MG PO (14:50)
[2019-06-08] MEDS ORDERED: K-Dur10 MEQ PO (14:51)
--- NOTE | 2019-06-08 15:50 | NUR ---
DISCHARGE NOTE DISCHARGE INSTRUCTIONS GIVEN TO PT AND PT'S . INSTRUCTED WERE TO NUCLEAR PHYSICS PROFESSOR NEW MEDICATIONS PER THEIR PREFFERED PHARMACY. PROVIDED D/C TEACHING ABOUT NEW MEDICATIONS AND WHEN TO TAKE NEXT DOSES. ALL QUESTIONS ANSWERED. BELONGINGS GATHERED UP AND SENT HOME WITH PT. BOTH OF PT'S IV'S D/C'D AND WERE INTACT. PT WAS ESCORTED OUT VIA WHEELCHAIR BY PCT.
[2019-06-09] MEDS ORDERED: NOVOLOG FL100 UNIT/1 SC (12:29)
[2019-06-09] MEDS ORDERED: PLAVIX75 MG PO (12:30)
[2019-06-09] MEDS ORDERED: BASAGLAR K100 UNIT/1 SC (12:30)
[2019-06-09] MEDS ORDERED: Pravachol40 MG PO (12:31)
[2019-06-09] MEDS ORDERED: QUETIAPINE FUM150 MG PO (12:31)
[2019-06-09] MEDS ORDERED: Metformin HCl1000 MG PO (12:32)
== END 2019-06-08 15:31 | disposition home or self-care (01) | DRG 441 ==
LOC: ER 04:13 → PCU 04:14 → MEDS 04:14 → PCU 08:00 → MEDS 09:43 → PCU 23:27
PROVIDERS: Emergency Medicine; Hospitalist; Internal Medicine Gastroenterology; ADMIT Internal Medicine
PROC: 06L38CZ Occlusion of Esophageal Vein with Extraluminal Device, Via Natural or Artificial Opening Endoscopic (ICD-10-PCS; principal; 2019-06-06 12:00)
DX: K76.6 Portal hypertension (principal); K72.00 Acute and subacute hepatic failure without coma; I85.11 Secondary esophageal varices with bleeding; E87.0 Hyperosmolality and hypernatremia; E87.2 Acidosis; K31.89 Other diseases of stomach and duodenum; K74.60 Unspecified cirrhosis of liver; E87.5 Hyperkalemia; D64.9 Anemia, unspecified; E86.0 Dehydration; R11.2 Nausea with vomiting, unspecified; G89.29 Other chronic pain; M54.9 Dorsalgia, unspecified; I12.9 Hypertensive chronic kidney disease with stage 1 through stage 4 chronic kidney disease, or unspecified chronic kidney disease; N18.2 Chronic kidney disease, stage 2 (mild); E11.22 Type 2 diabetes mellitus with diabetic chronic kidney disease; E78.5 Hyperlipidemia, unspecified; K75.81 Nonalcoholic steatohepatitis (NASH); Z87.891 Personal history of nicotine dependence; Z79.4 Long term (current) use of insulin; Z79.84 Long term (current) use of oral hypoglycemic drugs; Z79.02 Long term (current) use of antithrombotics/antiplatelets; Z79.51 Long term (current) use of inhaled steroids; Z79.899 Other long term (current) drug therapy
CPT/HCPCS: 36415; 71045; 74177; 80047; 80048; 80053; 81003; 82140; 82270; 82607; 82746; 82947; 83605; 83690; 84132; 84484; 85014; 85018; 85025; 85027; 93005; 93010; 94640; 96372; 96374-59; 96375; 96376; 97110; 97162; 97530; 99285-25; C9113; G0378; J0360; J0696; J1650; J1815; J2270; J2354; J2550; J2704; J3010; J3480; J7050; J7120; Q9967

== ENCOUNTER 2019-06-09 10:34 | Inpatient (IN) | payer OTHER ==
[~2019-06-09] VITALS: Ht 182.9 cm; Wt 95.8 kg
[~2019-06-09 10:34] MED LIST changes: +FERSU300 PO; +K-Dur10 MEQ PO; +LACT10SY PO; +Novolin R100 UNIT/M SC; +OMEPRAZOLE20 MG PO; +PROP10 PO
[2019-06-09 11:05] LABS: Calcium, Ionized (POC) 1.14 mmol/L (1.10-1.46); Chloride (POC) 107 mmol/L (98-108); Creatinine (POC) 0.9 mg/dL (0.8-1.3); Glucose (ISTAT POC) 88 mg/dL (70-99); Hemoglobin (POC) 9.2 g/dL (13.5-17.5); Potassium (POC) 4.2 mmol/L (3.5-5.5); Sodium (POC) 141 mmol/L (135-148); Total CO2 (POC) 24 mmol/L (21-32)
[2019-06-09 11:07] LABS: BASOPHILS ABSOLUTE AUTO 0.02 K/mm3 (0.00-0.23); BASOPHILS PERCENT AUTO 0 % (0-2); EOSINOPHILS ABSOLUTE AUTO 0.02 K/mm3 (0.00-0.68); EOSINOPHILS PERCENT AUTO 0 % (0-6); Hematocrit 27.1 % (37.0-53.0); Hemoglobin 8.5 g/dL (13.5-17.5); IMMATURE GRAN ABSOLUTE AUTO 0.05 K/mm3 (0.00-0.10); IMMATURE GRAN PERCENT AUTO 0 % (0-1); LYMPHOCYTES ABSOLUTE AUTO 2.98 K/mm3 (0.84-5.20); LYMPHOCYTES PERCENT AUTO 21 % (21-46); MONOCYTES ABSOLUTE AUTO 0.74 K/mm3 (0.16-1.47); MONOCYTES PERCENT AUTO 5 % (4-13); Mean Corpuscular HGB 35.6 pg (26.0-34.0); Mean Corpuscular HGB Conc 31.4 g/dL (31.5-36.5); Mean Corpuscular Volume 113 fL (80-100); Mean Platelet Volume 10.1 fL (9.1-12.4); NEUTROPHILS ABSOLUTE AUTO 10.22 K/mm3 (1.96-9.15); NEUTROPHILS PERCENT AUTO 73 % (41-73); Platelet Count 197 K/mm3 (150-400); RDW Standard Deviation 65.1 fL (35.1-46.3); Red Blood Cell Count 2.39 M/mm3 (4.30-5.90); White Blood Cell Count 14.03 K/mm3 (4.00-11.30)
[2019-06-09 11:12] LABS: Base Excess Venous -1.6 mmol/L; Bicarbonate Venous 22.9 mmol/L (24.0-30.0); PCO2 Venous 54.1 mmHg (38-42); PO2 Venous 152 mmHg (38-42); pH Blood Venous 7.27 (7.34-7.37)
[2019-06-09 11:22] LABS: Alanine Aminotransfer (ALT/SGP 71 U/L (12-78); Albumin, Blood 2.1 g/dL (3.4-5.0); Albumin/Globulin Ratio 0.5 (0.8-1.8); Alk Phos 139 U/L (50-136); Anion Gap 7 mmol/L (6-16); Aspartate Aminotrans (AST/SGOT 80 U/L (12-37); Bilirubin, Total 0.9 mg/dL (0.1-1.0); Blood Urea Nitrogen 14 mg/dL (8-24); Bun/Creatinine Ratio 16.5 (12.0-20.0); CO2, Blood 24 mmol/L (21-32); Calcium, Blood 7.4 mg/dL (8.5-10.1); Chloride, Blood 112 mmol/L (98-108); Creatinine, Blood 0.85 mg/dL (0.60-1.20); Globulin, Blood 4.2 g/dL (2.2-4.0); Glomerular Filtration Rate >60 (60-); Glucose, Blood 90 mg/dL (70-99); Potassium, Blood 4.2 mmol/L (3.5-5.5); Sodium, Blood 143 mmol/L (136-145); Total Protein, Blood 6.3 g/dL (6.4-8.2)
[2019-06-09 12:14] LABS: Source, Urine Catheter
[2019-06-09 12:26] LABS: Bilirubin, Urine Neg (Neg); Blood, Urine Neg (Neg); Glucose Qualitative, Urine 3+ (Neg); Ketones, Urine Neg (Neg); Leukocyte Esterase, Urine Neg (Neg); Nitrite, Urine Neg (Neg); Protein, Urine Neg (Neg); Urobilinogen, Urine NORM (Normal)
[2019-06-09] MEDS ORDERED: NOVOLOG FL100 UNIT/1 SC (12:29)
[2019-06-09] MEDS ORDERED: BASAGLAR K100 UNIT/1 SC (12:30)
[2019-06-09] MEDS ORDERED: PLAVIX75 MG PO (12:30)
[2019-06-09] MEDS ORDERED: Pravachol40 MG PO (12:31)
[2019-06-09] MEDS ORDERED: QUETIAPINE FUM150 MG PO (12:31)
[2019-06-09] MEDS ORDERED: Metformin HCl1000 MG PO (12:32)
[2019-06-09 12:34] LABS: Appearance, Urine Clear (Clear); Color, Urine Yellow (P-Yellow)
[2019-06-09 12:47] LABS: U Amphetamine Screen Not Detected; U Barbituate Screen Not Detected; U Benzodiazapine Screen Not Detected; U Buprenorphine Screen Not Detected; U Cannabinoids Screen Not Detected; U Cocaine Screen Not Detected; U Methadone Screen Not Detected; U Methamphetamine Screen Not Detected; U Opiates Screen Not Detected; U Oxycodone Screen Not Detected; U Phencyclidine Screen Not Detected; U Propoxyphene Screen Not Detected
[2019-06-09 14:47] LABS: Hematocrit 24.8 % (37.0-53.0); Hemoglobin 8.1 g/dL (13.5-17.5)
--- NOTE | 2019-06-09 17:24 | NUR ---
PATIENT CONTINUES TO MOAN, RESPONDS TO PAINFUL STIMULI. Q2 HR CBG'S. WILL CONTINUE TO MONITOR AND ATTEMPT TO WAKEN. FAMILY AT BEDSIDE.
--- NOTE | 2019-06-09 19:15 | NUR ---
REPORT TO SARAVANAN GARCIA
--- NOTE | 2019-06-09 21:00 | NUR ---
ASSUMPTION OF CARE ASSUMED CARE OF PT AT 1900. PT SLEEPING, FREQUENTLY MOANING IN BED, DOES NOT RESPOND TO VERBAL STIMULI, LOWER EXTREMITIES WITHDRAW TO NOXIOUS STIMULI. PUPILS EVEN AND REACTIVE TO LIGHT. O2 SATURATIONS MAINTAINED ABOVE 90% ON RA, LUNGS ARE CLEAR AND DIMINISHED IN THE BASES. HR 60'S-70'S, BP ELEVATED, SYSTOLICS BP 160'S. BOWEL TONES NORMAL X4, ABDOMEN EXTENDED AND SOFT. RECTAL TUBE PLACED AND LACTULOSE ENEMA ADMINISTERED.
--- NOTE | 2019-06-09 23:17 | NUR ---
CALL TO DR EARLY REGARDING SYSTOLIC BP>170, PT UNABLE TO TAKE SHCHEDULED DOSES OF PO MEDICATION DUE TO ALT LOC. NOTIFIED PHYSICIAN OF PROLONGED QT, NO URINE OUTPUT X11hrs AND NO MAINTENANCE FLUIDS OR AM LABS ORDERED. BLADDER SCAN ORDERED, SHOWED 350ml OF URINE. DR EARLY ORDERED HYDRALAZINE IV 20MG Q6H PRN FOR SYSTOLIC BP>150, LR @ 100ml/hr x1L, AND MORNING CBC, CMP, BNP, MAG AND PHOS.
[2019-06-10 03:38] LABS: BASOPHILS ABSOLUTE AUTO 0.02 K/mm3 (0.00-0.23); BASOPHILS PERCENT AUTO 0 % (0-2); EOSINOPHILS ABSOLUTE AUTO 0.07 K/mm3 (0.00-0.68); EOSINOPHILS PERCENT AUTO 1 % (0-6); Hematocrit 26.5 % (37.0-53.0); Hemoglobin 8.4 g/dL (13.5-17.5); IMMATURE GRAN PERCENT AUTO 1 % (0-1); LYMPHOCYTES ABSOLUTE AUTO 4.39 K/mm3 (0.84-5.20); LYMPHOCYTES PERCENT AUTO 30 % (21-46); MONOCYTES ABSOLUTE AUTO 0.93 K/mm3 (0.16-1.47); MONOCYTES PERCENT AUTO 6 % (4-13); Mean Corpuscular HGB 35.7 pg (26.0-34.0); Mean Corpuscular HGB Conc 31.7 g/dL (31.5-36.5); Mean Corpuscular Volume 113 fL (80-100); Mean Platelet Volume 9.9 fL (9.1-12.4); NEUTROPHILS ABSOLUTE AUTO 9.19 K/mm3 (1.96-9.15); NEUTROPHILS PERCENT AUTO 63 % (41-73); Platelet Count 195 K/mm3 (150-400); RDW Coefficient Variation 16.4 % (11.7-14.2); RDW Standard Deviation 65.4 fL (35.1-46.3); Red Blood Cell Count 2.35 M/mm3 (4.30-5.90)
[2019-06-10 03:58] LABS: Alanine Aminotransfer (ALT/SGP 61 U/L (12-78); Albumin, Blood 2.1 g/dL (3.4-5.0); Albumin/Globulin Ratio 0.5 (0.8-1.8); Alk Phos 141 U/L (50-136); Anion Gap 6 mmol/L (6-16); Aspartate Aminotrans (AST/SGOT 75 U/L (12-37); Bilirubin, Total 1.4 mg/dL (0.1-1.0); Blood Urea Nitrogen 19 mg/dL (8-24); Bun/Creatinine Ratio 20.3 (12.0-20.0); CO2, Blood 24 mmol/L (21-32); Calcium, Blood 7.4 mg/dL (8.5-10.1); Chloride, Blood 112 mmol/L (98-108); Creatinine, Blood 0.94 mg/dL (0.60-1.20); Glomerular Filtration Rate >60 (60-); Glucose, Blood 140 mg/dL (70-99); Magnesium, Blood 1.4 mg/dL (1.6-2.4); Phosphorus, Blood 2.5 mg/dL (2.5-4.9); Potassium, Blood 3.8 mmol/L (3.5-5.5); Sodium, Blood 142 mmol/L (136-145); Total Protein, Blood 6.1 g/dL (6.4-8.2)
--- NOTE | 2019-06-10 05:40 | NUR ---
CALL PLACED TO DR BANUELOS REGARDING INCREASED BP, UPDATED ON PREVIOUS ORDERS FROM DR EARLY AND CURRENT BP OF 192/62. MAINTENANCE FLUIDS STARTED AROUND 0000 AND NO URINE OUTPUT SINCE 06/09 @ 1200, PREVIOUS BLADDER SCAN SHOWED APPROX 350ml OF URINE. MORNING LABS SHOWED LOW MAG OF 1.4. NEW BLADDER SCAN ORDERED AND STRAIGHT CATH IF >500ml URINE, LABETOLOL IV 10mg x1 ORDERED. DR BANUELOS WILL REVIEW MORNING LABS FOR ELECTROLYTE REPLACEMENT.
--- NOTE | 2019-06-10 06:41 | NUR ---
SHIFT SUMMARY PT REMAINS OBTUNDED T/O SHIFT, RESPONDS TO VERBAL STIMULI, OPENS EYES, DOES NOT TRACK OBJECTS, DOES NOT FOLLOW COMMANDS. O2 SATURATIONS MAINTAINED ABOVE 90% ON RA, HR 60'S-70'S, RHYTHM STRIP SHOWS NSR WITH SLIGHT ST DEPRESSION AND PROLONGED QT, BP REMAINED ELEVATED T/O SHIFT, PRN IV MEDICATIONS OBTAINED AND ADMINISTERED (SEE PREVIOUS NOTES). STRAIGHT CATH INSERTED AT END OF SHIFT DUE TO URINARY RETENTION, 575ml OF CLEAR, ODIFEROUS, ORANGE URINE.
--- NOTE | 2019-06-10 07:19 | NUR ---
ASSUMED CARE REPORT FROM SARAVANAN GARCIA. PATIENT RESPONDS TO PAINFUL STIMULATION ONLY. HYPERTENSIVE.
--- NOTE | 2019-06-10 07:44 | NUR ---
MD VISIT DR. TORRES IN. PATIENT CONTINUES TO RESPOND TO NOXIOUS STIMULATION ONLY. AN OCCASIONAL COUGH, HOLDS EYELIDS CLOSED WHEN ATTEMPT MADE TO EXAMINE PUPILS. NO SIGN OF ABDOMINAL TENDERNESS ON PALPATION. TOES ARE POINTED.
--- NOTE | 2019-06-10 09:24 | NUR ---
PATIENT HAS NOT URINATED. CONTINUES UNRESPONSIVE. CONTACTED DR. TORRES. ORDER FOR RODRÍGUEZ AND UA
[2019-06-10 10:14] LABS: Source, Urine Catheter
[2019-06-10 10:16] LABS: Appearance, Urine Clear (Clear); Bilirubin, Urine Neg (Neg); Blood, Urine Neg (Neg); Color, Urine Yellow (P-Yellow); Glucose Qualitative, Urine 3+ (Neg); Ketones, Urine 2+ (Neg); Leukocyte Esterase, Urine Neg (Neg); Nitrite, Urine Neg (Neg); Protein, Urine Neg (Neg); Specific Gravity, Urine 1.025 (1.003-1.022); Urobilinogen, Urine NORM (Normal)
--- NOTE | 2019-06-10 15:05 | NUR ---
MD VISIT DR. MICHAELS IN
--- NOTE | 2019-06-10 15:44 | NUR ---
PATIENT BAEZA. CONTINUES TO BE UNRESPONSIVE EXCEPT TO NOXIOUS STIMULI. HYDRALAZINE GIVEN X2.
--- NOTE | 2019-06-10 18:06 | NUR ---
CONSULTED DR. TRORES RE: HYPERTENSION. HE WILL ORDER MEDS
--- NOTE | 2019-06-10 20:00 | NUR ---
ASSUMPTION OF CARE ASSUMED CARE OF PT AT 1900. PT APPEARS TO BE SLEEPING IN BED, AROUSES TO VERBAL AND PAINFUL STIMULI, PUSHES NURSES HAND AWAY WITH NOXIOUS STIMULI, CORNEAL REFLEXES PRESENT, DOES NOT TRACK OBJECTS OR FOLLOW DIRECTIONS. PT MAINTAINS O2 ABOVE 90% ON RA, LUNGS CLEAR AND DIMINISHED IN THE BASES. MONITOR SHOWS NSR WITH ST DEPRESSION, RATE 70'S-80'S, PT HYPERTENSIVE, PRN MEDICATIONS ADMINISTERED NEEDED/ORDERED. RECTAL TUBE PRESENT AND DRAINING ORANGE LIQUID FROM LACTULOSE ENEMA, RODRÍGUEZ PRESENT AND DRAINING ORANG URINE, WHITE DRAINAGE NOTED AROUND CATHETER FROM URETHRA.
[2019-06-11 03:50] LABS: Hematocrit 24.7 % (37.0-53.0); Hemoglobin 7.9 g/dL (13.5-17.5); Mean Corpuscular HGB 36.2 pg (26.0-34.0); Mean Corpuscular Volume 113 fL (80-100); Platelet Count 206 K/mm3 (150-400); RDW Coefficient Variation 16.6 % (11.7-14.2); RDW Standard Deviation 68.1 fL (35.1-46.3); Red Blood Cell Count 2.18 M/mm3 (4.30-5.90); White Blood Cell Count 12.98 K/mm3 (4.00-11.30)
[2019-06-11 04:04] LABS: Anion Gap 7 mmol/L (6-16); Blood Urea Nitrogen 27 mg/dL (8-24); Bun/Creatinine Ratio 29.5 (12.0-20.0); CO2, Blood 24 mmol/L (21-32); Calcium, Blood 7.5 mg/dL (8.5-10.1); Chloride, Blood 112 mmol/L (98-108); Creatinine, Blood 0.92 mg/dL (0.60-1.20); Glomerular Filtration Rate >60 (60-); Glucose, Blood 222 mg/dL (70-99); Potassium, Blood 3.7 mmol/L (3.5-5.5); Sodium, Blood 143 mmol/L (136-145)
--- NOTE | 2019-06-11 05:54 | NUR ---
SHIFT SUMMARY PT REMAINS OBTUNDED AND SLEEPING T/O SHIFT, HAS SOME MEANINGFUL MOVEMENT WITH EXTREMITIES, PUSHES NURSES HANDS AWAY WITH NOXIOUS STIMULI, PULLS SHEET OVER BODY AND OCCASSIONALLY REPOSITIONS SELF IN BED. VSS, NO PRN BP MEDICATIONS NEEDED THIS SHIFT. RECTAL TUBE IN PLACE, LACTULOSE ENEMA ADMINISTERED Q6H, DOES NOT RETAIN WELL. RODRÍGUEZ IN PLACE AND DRAINING DARK YELLOW URINE.
--- NOTE | 2019-06-11 07:21 | NUR ---
ASSUMED CARE NOTE REPORT RECEIVED FROM JOSE, STUDENT RN. BEDSIDE ROUNDING DONE. PT RESTING IN BED ON LEFT SIDE WITH EYES CLOSED, MOANING. VSS, SEE FLOWSHEET. FLEXISEAL IN PLACE, DRAINING TO GRAVITY. BED IN LOWEST POSITION, SIDE RAILS RAISED. CALL LIGHT IN REACH. WILL CONT TO MONITOR PT.
--- NOTE | 2019-06-11 08:14 | NUR ---
DR MICHAELS ROUNDS DR MICHAELS ROUNDED, UPDATED ON PT STATUS. PLAN TO CALL DR TORRES. NO ORDERS AT THIS TIME.
--- NOTE | 2019-06-11 09:07 | NUR ---
CALLED CALL FROM REQUESTING UPDATE. UPDATE GIVEN. ASKED FOR INFORMATION REGARDING PT'S BASELINE, PER PT'S PT IS NORMALLY AMBULATORY, ABLE TO DRIVE, AND HOLDS CONVERSATIONS WITH FAMILY MEMBERS. ENCOURAGED TO CALL BACK WITH ANY QUESTIONS.
--- NOTE | 2019-06-11 09:08 | NUR ---
LAB DRAW BUSINESS APPLICATIONS SPECIALIST AT BEDSIDE TO DRAW 1000 SODIUM LEVEL.
[2019-06-11 09:25] LABS: PO2 Arterial 69.3 mmHg (80-100); pH Blood Arterial 7.48 (7.35-7.45)
--- NOTE | 2019-06-11 13:10 | NUR ---
SHIFT UPDATE PT SBP IN 190S, MEDICATED PER ORDERS WITH HYDRALAZINE. SEE EMAR. PREPARING TO LEAVE ROOM AFTER MEDICATING PT, TURNED TO SEE PT OPENING EYES SPONTANEOUSLY. PT MAINTAINED GAZE ON THIS RN I WALKED UP TO BEDSIDE AND PROCEEDED TO TRACK I WALKED TO OTHER SIDE OF THE BED. PT REMAINS NONVERBAL AND DOES NOT FOLLOW COMMANDS. WILL CONT TO MONITOR PT.
--- NOTE | 2019-06-11 20:30 | NUR ---
ASSUMPTION OF CARE ASSUMED CARE OF PT AT 1900, PT RESTING IN BED, MOANING, RESPONDS TO PAINFUL STIMULI, MOVES ALL EXTREMITIES. UNABLE TO ASSESS PUPILS PT CLENCHES EYES SHUT. VSS, PT ON RA AND NSR ON THE MONITOR. RECTAL TUBE AND RODRÍGUEZ IN PLACE. PERIPHERAL IV TO RAC INFUSING.
[2019-06-12 03:57] LABS: BASOPHILS ABSOLUTE AUTO 0.03 K/mm3 (0.00-0.23); BASOPHILS PERCENT AUTO 0 % (0-2); EOSINOPHILS ABSOLUTE AUTO 0.09 K/mm3 (0.00-0.68); EOSINOPHILS PERCENT AUTO 1 % (0-6); Hematocrit 23.3 % (37.0-53.0); Hemoglobin 7.4 g/dL (13.5-17.5); IMMATURE GRAN ABSOLUTE AUTO 0.03 K/mm3 (0.00-0.10); IMMATURE GRAN PERCENT AUTO 0 % (0-1); LYMPHOCYTES ABSOLUTE AUTO 2.63 K/mm3 (0.84-5.20); LYMPHOCYTES PERCENT AUTO 32 % (21-46); MONOCYTES ABSOLUTE AUTO 0.59 K/mm3 (0.16-1.47); MONOCYTES PERCENT AUTO 7 % (4-13); Mean Corpuscular HGB 36.1 pg (26.0-34.0); Mean Corpuscular HGB Conc 31.8 g/dL (31.5-36.5); Mean Corpuscular Volume 114 fL (80-100); Mean Platelet Volume 9.8 fL (9.1-12.4); NEUTROPHILS ABSOLUTE AUTO 4.98 K/mm3 (1.96-9.15); NEUTROPHILS PERCENT AUTO 60 % (41-73); Platelet Count 152 K/mm3 (150-400); RDW Coefficient Variation 16.2 % (11.7-14.2); RDW Standard Deviation 67.3 fL (35.1-46.3); Red Blood Cell Count 2.05 M/mm3 (4.30-5.90); White Blood Cell Count 8.35 K/mm3 (4.00-11.30)
[2019-06-12 04:15] LABS: Alanine Aminotransfer (ALT/SGP 53 U/L (12-78); Albumin/Globulin Ratio 0.5 (0.8-1.8); Alk Phos 136 U/L (50-136); Anion Gap 7 mmol/L (6-16); Aspartate Aminotrans (AST/SGOT 65 U/L (12-37); Bilirubin, Total 0.9 mg/dL (0.1-1.0); Blood Urea Nitrogen 24 mg/dL (8-24); Bun/Creatinine Ratio 30.7 (12.0-20.0); CO2, Blood 23 mmol/L (21-32); Calcium, Blood 7.4 mg/dL (8.5-10.1); Chloride, Blood 115 mmol/L (98-108); Creatinine, Blood 0.78 mg/dL (0.60-1.20); Globulin, Blood 3.9 g/dL (2.2-4.0); Glomerular Filtration Rate >60 (60-); Glucose, Blood 186 mg/dL (70-99); Potassium, Blood 3.3 mmol/L (3.5-5.5); Sodium, Blood 145 mmol/L (136-145); Total Protein, Blood 5.9 g/dL (6.4-8.2)
--- NOTE | 2019-06-12 07:21 | NUR ---
SHIFT SUMMARY PT MORE AWAKE TOWARDS END OF SHIFT, APPEARS TO BE WATCHING TV, SAYS ONE WORD STATEMENTS SUCH "NO" AND "OUCH" WITH IV START AND OTHER NURSING CARE. VSS T/O SHIFT, HTN NOTED DURING LACTULOSE ENEMAS, RESOLVES WITH DRAINAGE OF LIQUID AND RELAXATION. RODRÍGUEZ IN PLACE AND DRAINING YELLOW URINE. RECTAL TUBE IN PLACE. POWERGLIDE INSERTION THIS SHIFT TO [facility].
--- NOTE | 2019-06-12 08:00 | NUR ---
ASSUMED CARE NOTE: PT ALERT, HOWEVER HE IS UNABLE TO FOLLOW DIRECTIONS. PT HAS NOT BEEN ABLE TO ANSWER ANY QUESTIONS AND REMAINS NONVERBAL. PT IS ON RA WITH SP02 ABOVE 90%. NSR WITH HR IN THE 80'S. RODRÍGUEZ DRAINING LUPE URINE WITH WHITE/RED SEDIMENT. RECTAL TUBE IN PLACE DRAINING WATERY BROWN/ORANGE STOOL. WILL CONTINUE TO MONITOR PT T/O SHIFT.
--- NOTE | 2019-06-12 14:48 | NUR ---
UPDATE: PT CONTINUES TO BE ALERT AND HAS GARBLED SPEACH. PT CONTINUES TO BE UNABLE TO FOLLOW DIRECTIONS. FAMILY HAS BEEN UPDATED, AT BEDSIDE. RECTAL TUBE WAS DISLODGED AFTER LACTULOSE MED ADMINISTRATION, TUBE WAS RESECURED AND IS DRAINING BROWN/ORANGE STOOL. PT BECAME HYPERTENSIVE IN THE AM AND WAS MEDICATED PERCRIBED. PT WAS CHANGED TO MEDICAL STATUS, AWAITING FOR BED ASSIGNMENT. WILL CONTINUE TO MONITOR T/O SHIFT.
--- NOTE | 2019-06-12 17:47 | NUR ---
Spiritual Care initial note: Mr. Khan was awake. He was non-verbal and just stared at me when I spoke to him. He nodded to some comments/questions, but I was unsure he understood anything I was saying. No family present. Mr. Khan appears to be comfortable and well cared-for by nursing. Per chart, he is non-jehovah's witness. I will remain available to pt and family.
--- NOTE | 2019-06-12 18:18 | NUR ---
SHIFT SUMMARY: PT CONTINUES TO MUMBLE INCOHERENTLY. IS UNABLE TO FOLLOW COMMANDS. PT REMAINS ON RA WITH SPO2 ABOVE 90%. NSR WITH HR IN THE 80'S. NO S/S OF PAIN. DOBBHOFF WAS INSERTED AND PLACEMENT WAS VERIFIED. PT IS IN SBW RESTRAINTS DUE TO PT PULLING AT LINES/TUBES. RODRÍGUEZ IS DRAINING LUPE RED/WHITE SEDIMENT. RECTAL TUBE IN PLACE DRAINING BROWN STOOL. AT BEDSIDE. BED AT LOWEST LEVEL. WILL CONTINUE TO MONIOR PT UNTIL REPORT IS GIVEN TO ONCOMING SHIFT.
--- NOTE | 2019-06-12 18:52 | NUR ---
1700: DOBHOFF TUBE INSERTED INTO RIGHT NARE WITHOUT DIFFICULTY OR RESISTANCE, PT TOLERATED WITH MODERATE COUGHING, NO EMESIS. TUBE SECURED WITH TAPE TO NOSE AND TO GOWN. XRAY COMPLETED FOR CONFIRMATION, REVIEWED BY DR. MICHAELS. GUIDEWIRE REMOVED. PT SITTING UP IN BED, RESTRAINTS ON FOR PROTECTION OF DOBHOFF, PT CALM AND QUIET AFTER INSERTION. AT BEDSIDE.
[2019-06-13 06:30] LABS: BASOPHILS ABSOLUTE AUTO 0.03 K/mm3 (0.00-0.23); BASOPHILS PERCENT AUTO 0 % (0-2); EOSINOPHILS ABSOLUTE AUTO 0.12 K/mm3 (0.00-0.68); EOSINOPHILS PERCENT AUTO 1 % (0-6); Hematocrit 23.2 % (37.0-53.0); Hemoglobin 7.3 g/dL (13.5-17.5); IMMATURE GRAN ABSOLUTE AUTO 0.02 K/mm3 (0.00-0.10); IMMATURE GRAN PERCENT AUTO 0 % (0-1); LYMPHOCYTES ABSOLUTE AUTO 3.36 K/mm3 (0.84-5.20); LYMPHOCYTES PERCENT AUTO 38 % (21-46); MONOCYTES ABSOLUTE AUTO 0.65 K/mm3 (0.16-1.47); MONOCYTES PERCENT AUTO 7 % (4-13); Mean Corpuscular HGB 35.8 pg (26.0-34.0); Mean Corpuscular HGB Conc 31.5 g/dL (31.5-36.5); Mean Corpuscular Volume 114 fL (80-100); Mean Platelet Volume 10.2 fL (9.1-12.4); NEUTROPHILS ABSOLUTE AUTO 4.74 K/mm3 (1.96-9.15); NEUTROPHILS PERCENT AUTO 53 % (41-73); Platelet Count 166 K/mm3 (150-400); RDW Coefficient Variation 16.5 % (11.7-14.2); RDW Standard Deviation 68.3 fL (35.1-46.3); Red Blood Cell Count 2.04 M/mm3 (4.30-5.90); White Blood Cell Count 8.92 K/mm3 (4.00-11.30)
[2019-06-13 06:50] LABS: Alanine Aminotransfer (ALT/SGP 52 U/L (12-78); Albumin/Globulin Ratio 0.5 (0.8-1.8); Alk Phos 133 U/L (50-136); Anion Gap 10 mmol/L (6-16); Aspartate Aminotrans (AST/SGOT 57 U/L (12-37); Bilirubin, Total 0.8 mg/dL (0.1-1.0); Blood Urea Nitrogen 29 mg/dL (8-24); Bun/Creatinine Ratio 30.1 (12.0-20.0); CO2, Blood 21 mmol/L (21-32); Calcium, Blood 7.4 mg/dL (8.5-10.1); Chloride, Blood 118 mmol/L (98-108); Creatinine, Blood 0.96 mg/dL (0.60-1.20); Globulin, Blood 3.8 g/dL (2.2-4.0); Glomerular Filtration Rate >60 (60-); Glucose, Blood 234 mg/dL (70-99); Magnesium, Blood 1.8 mg/dL (1.6-2.4); Percent Saturation 9.7 % (20.0-50.0); Potassium, Blood 3.4 mmol/L (3.5-5.5); Sodium, Blood 149 mmol/L (136-145); Total Protein, Blood 5.8 g/dL (6.4-8.2)
--- NOTE | 2019-06-13 07:29 | NUR ---
SHIFT CANDI RESTED WELL THIS SHIFT. REPOSITIONED FOR COMFORT Q2 AND PRN. DUBHOV USED FOR LACTULOSE. RECTAL TUBE AND RODRÍGUEZ IN PLACE. RIGHT UPPER ARMPOWER GLIDE FLUSHES WITH EASE AND GREAT BLOOD RETURN STILL NOTED. PT IS MORE AWAKE THIS AM. DENIES NEEDS AT HT IS TIME. HAND OFF GIVEN TO SARAVANAN RESENDIZ USING SBAR.
--- NOTE | 2019-06-13 08:46 | NUR ---
DR. SALAZAR IN ROOM ASSESSING PATIENT.
--- NOTE | 2019-06-13 09:44 | NUR ---
PT SENT TO MEDICAL FLOOR ROOM 350 AT [id number].
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
--- NOTE | 2019-06-13 19:10 | NUR ---
PT. WITHOUT CHANGE SINCE COMING TO FLOOR, STILL JUST STARES WHEN BEING SPOKEN TO. NO OTHER NOTEABLE CHANGES THIS SHIFT.
--- NOTE | 2019-06-13 20:04 | NUR ---
PT. LEAKING STOOL AROUND RECTAL TUBE THATS IN PLACE. PREVIOUS TUBE REMOVED AND NEW RECTAL TUBE INSERTED, PT. TOLERATED WELL. STOOL OUTPUT NOTED IN TUBING. PT. REPOSITIONED FOR COMFORT. NO APPARENT DISTRESS NOTED. WILL CONT TO MONITOR.
--- NOTE | 2019-06-13 22:31 | NUR ---
PT. CONTS TO LEAK STOOL AROUND RECTAL TUBE. SECOND ATTEMPT MADE TO REINSERT TUBE UNSUCCESSFUL. PT. CONTINUES TO HAVE LIQUID STOOLS. ATTENDS BRIEF PLACED ON PT. WILL CONT TO MONITOR.
[2019-06-14 05:02] LABS: BASOPHILS ABSOLUTE AUTO 0.05 K/mm3 (0.00-0.23); BASOPHILS PERCENT AUTO 1 % (0-2); EOSINOPHILS ABSOLUTE AUTO 0.13 K/mm3 (0.00-0.68); EOSINOPHILS PERCENT AUTO 2 % (0-6); Hematocrit 23.1 % (37.0-53.0); Hemoglobin 7.1 g/dL (13.5-17.5); IMMATURE GRAN ABSOLUTE AUTO 0.03 K/mm3 (0.00-0.10); IMMATURE GRAN PERCENT AUTO 0 % (0-1); LYMPHOCYTES ABSOLUTE AUTO 3.16 K/mm3 (0.84-5.20); LYMPHOCYTES PERCENT AUTO 36 % (21-46); MONOCYTES PERCENT AUTO 6 % (4-13); Mean Corpuscular HGB 35.1 pg (26.0-34.0); Mean Corpuscular HGB Conc 30.7 g/dL (31.5-36.5); Mean Corpuscular Volume 114 fL (80-100); Mean Platelet Volume 10.4 fL (9.1-12.4); NEUTROPHILS ABSOLUTE AUTO 4.84 K/mm3 (1.96-9.15); NEUTROPHILS PERCENT AUTO 56 % (41-73); Platelet Count 159 K/mm3 (150-400); RDW Coefficient Variation 16.3 % (11.7-14.2); RDW Standard Deviation 68.7 fL (35.1-46.3); Red Blood Cell Count 2.02 M/mm3 (4.30-5.90); White Blood Cell Count 8.71 K/mm3 (4.00-11.30)
[2019-06-14 05:26] LABS: Alanine Aminotransfer (ALT/SGP 57 U/L (12-78); Albumin, Blood 2.3 g/dL (3.4-5.0); Albumin/Globulin Ratio 0.6 (0.8-1.8); Alk Phos 135 U/L (50-136); Anion Gap 10 mmol/L (6-16); Aspartate Aminotrans (AST/SGOT 50 U/L (12-37); Bilirubin, Total 0.8 mg/dL (0.1-1.0); Blood Urea Nitrogen 23 mg/dL (8-24); Bun/Creatinine Ratio 28.6 (12.0-20.0); CO2, Blood 21 mmol/L (21-32); Calcium, Blood 7.7 mg/dL (8.5-10.1); Chloride, Blood 120 mmol/L (98-108); Globulin, Blood 3.7 g/dL (2.2-4.0); Glomerular Filtration Rate >60 (60-); Glucose, Blood 225 mg/dL (70-99); Potassium, Blood 3.4 mmol/L (3.5-5.5); Sodium, Blood 151 mmol/L (136-145)
--- NOTE | 2019-06-14 05:27 | NUR ---
SHIFT SUMMARY- PT. SLEPT WELL T/O THE NIGHT. NO APPARENT DISTRESS NOTED. PT. STARES AND ATTEMPTS TO TALK BUT SPEECH IS INCOHERENT. BILATERAL SOFT WRIST RESTRAINTS ON TO PREVENT PT. FROM PULLING ON LINES. NGT(DOBHOFF) IN PLACE, RECTAL TUBE REMOVED DUE TO LEAKING AFTER MULTIPLE PLACEMENTS. ATTENDS IN PLACE, AMOUNT OF LIQUID STOOLS IMPROVING. PT. REPOSITIONED Q2 AND PRN FOR COMFORT. NO OTHER CHANGES IN CONDITION. CALL LIGHT WITHIN REACH, SIDE RAILS UP X2, AND BED ALARM ON FOR SAFETY. WILL CONT TO MONITOR.
--- NOTE | 2019-06-14 18:29 | NUR ---
PT. SLEEPING SOUNDLY AT THIS TIME. PT WORKED WITH PT. TODAY BUT NOT REAL DIRECTABLE. HAS SAID A FEW EXTRA WORDS TODAY BUT STILL ANSWER ALL QUESTIONS YES. ST IS SUPPOSED TO EVALUATE PT. IN AM TO SEE IF ITS SAFE TO REMOVE THE DOBHOFF AND GIVE THE MEDS ORALLY OR INTRODUCE FOOD. THE LACTULOSE WAS HELD TODAY R/T AMMONIA LEVEL OF [address] OF HEAD. SEVERAL FAMILY MEMBERS VISITED WITH PT. TODAY. DID LAUGH AT THE [facility] BUT NO MEASUREABLE VERBALIZATION. PT. HAS NOT HAD ANY SUSTENANCE SINCE ADMIT. HAS BEEN GIVEN NS, 1/2 NS, AND HAS NOW BEEN STARTED ON NS WITH KCL. PT. DOES TRY TO GRAB THE STAFF WHEN THEY GET TO CLOSE TO HIM, NOT IN AN AGRESSIVE WAY.
--- NOTE | 2019-06-15 03:14 | NUR ---
CALL TO ANSWERING SERVICE AT 0240. PT PULLED OUT HIS DOBHOFF TUBE SOMETIME AFTER 0200 AM CHECK. SOFT WRIST RESTRAINTS REMAIN IN PLACE, PT SLID DOWN IN BED ENOUGH TO GET HIS HANDS ON THE TUBING AND PULLED IT OUT. SWALLOW EVAL SCHEDULED FOR THE MORNING. DR. PLASCENCIA STATES, "OK TO HOLD ALL AM MEDS AND LEAVE DOBHOFF TUBE OUT UNTIL THE SWALLOW EVAL". INFORMATION ADDED "NURSE NOTIFY" ORDER. WILL PASS INFO ON VERBALLY TO ONCOMING DAY SHIFT RN.
[2019-06-15 04:46] LABS: BASOPHILS ABSOLUTE AUTO 0.03 K/mm3 (0.00-0.23); BASOPHILS PERCENT AUTO 0 % (0-2); EOSINOPHILS ABSOLUTE AUTO 0.09 K/mm3 (0.00-0.68); EOSINOPHILS PERCENT AUTO 1 % (0-6); Hematocrit 24.1 % (37.0-53.0); Hemoglobin 7.4 g/dL (13.5-17.5); IMMATURE GRAN ABSOLUTE AUTO 0.03 K/mm3 (0.00-0.10); IMMATURE GRAN PERCENT AUTO 0 % (0-1); LYMPHOCYTES ABSOLUTE AUTO 2.25 K/mm3 (0.84-5.20); LYMPHOCYTES PERCENT AUTO 26 % (21-46); MONOCYTES ABSOLUTE AUTO 0.47 K/mm3 (0.16-1.47); MONOCYTES PERCENT AUTO 6 % (4-13); Mean Corpuscular HGB 34.7 pg (26.0-34.0); Mean Corpuscular HGB Conc 30.7 g/dL (31.5-36.5); Mean Corpuscular Volume 113 fL (80-100); Mean Platelet Volume 10.3 fL (9.1-12.4); NEUTROPHILS PERCENT AUTO 66 % (41-73); Platelet Count 149 K/mm3 (150-400); RDW Coefficient Variation 16.1 % (11.7-14.2); RDW Standard Deviation 67.5 fL (35.1-46.3); Red Blood Cell Count 2.13 M/mm3 (4.30-5.90); White Blood Cell Count 8.57 K/mm3 (4.00-11.30)
--- NOTE | 2019-06-15 04:55 | NUR ---
SHIFT SUMMARY: VSS. AFEB. ALERT AND AWAKE MOST OF NIGHT. OCCASIONAL SMILES AND LAUGHS BUT NOT SPEAKING MORE THAN THE RARE "YES". NO SIGNS OF PAIN. BILATERAL SOFT RESTRAINTS ON ALL NIGHT. HANDS SWOLLEN GREATHER THAN THE REST OF ARMS. FINGER BREATH SPACE BETWEEN RESTRAINTS AND SKIN. HANDS WARM AND CAP REFILL LESS THAN 3 SECONDS IN B HANDS. GENERALIZED EDEMA NOTED, TRACE TO 1+. FC PATENT AND DRAINING DARK URINE WITH MODERATE AMTS OF RED SEDIMENT. FAMILY IN TO VISIT IN THE FIRST PART OF THE NIGHT. BED LOW, ALARM ON, CALL BUTTON IN REACH.
[2019-06-15 04:59] LABS: Alanine Aminotransfer (ALT/SGP 48 U/L (12-78); Albumin, Blood 2.3 g/dL (3.4-5.0); Albumin/Globulin Ratio 0.6 (0.8-1.8); Alk Phos 135 U/L (50-136); Anion Gap 9 mmol/L (6-16); Aspartate Aminotrans (AST/SGOT 44 U/L (12-37); Bilirubin, Total 0.8 mg/dL (0.1-1.0); Blood Urea Nitrogen 20 mg/dL (8-24); Bun/Creatinine Ratio 25.3 (12.0-20.0); CO2, Blood 21 mmol/L (21-32); Calcium, Blood 7.7 mg/dL (8.5-10.1); Chloride, Blood 120 mmol/L (98-108); Creatinine, Blood 0.79 mg/dL (0.60-1.20); Globulin, Blood 3.8 g/dL (2.2-4.0); Glomerular Filtration Rate >60 (60-); Glucose, Blood 238 mg/dL (70-99); Potassium, Blood 3.6 mmol/L (3.5-5.5); Sodium, Blood 150 mmol/L (136-145); Total Protein, Blood 6.1 g/dL (6.4-8.2)
[2019-06-15 16:29] LABS: Anion Gap 7 mmol/L (6-16); Blood Urea Nitrogen 22 mg/dL (8-24); Bun/Creatinine Ratio 32.2 (12.0-20.0); CO2, Blood 20 mmol/L (21-32); Calcium, Blood 7.5 mg/dL (8.5-10.1); Chloride, Blood 120 mmol/L (98-108); Creatinine, Blood 0.68 mg/dL (0.60-1.20); Glomerular Filtration Rate >60 (60-); Glucose, Blood 256 mg/dL (70-99); Potassium, Blood 3.8 mmol/L (3.5-5.5); Sodium, Blood 147 mmol/L (136-145)
--- NOTE | 2019-06-15 18:32 | NUR ---
PT AWAKE TODAY, MOST OF THE TIME HE IS NOT ACTIVELY ENGAGED WITH STAFF AND DOES NOT FOLLOW DIRECTIONS. SOFT WRIST RESTRAINTS REMOVED THIS MORNING AND PT HAS NOT ATTEMPTED TO PULL BERTHA POWER GLIDE. STILL RECEIVING IVF, .45% NS AT 150 ML/HR. ATTEMPTED TO GET PT OOB TO CHAIR AT BEDSIDE, PT DID NOT STAND OR COOPERATE BY FOLLOWING DIRECTIONS. WILL CONTINUE TO MONITOR AND REPORT TO ONCOMING RN
--- NOTE | 2019-06-16 04:31 | NUR ---
SHIFT SUMMARY: NO ACUTE CHANGES. VSS. AFEB. FAMILY REMAINED AT BEDSIDE THROUGH THE NIGHT. PT SEEMS CONTENT, SMILING AND OCCASIONALLY LAUGHING. SAYING "YEAH" BUT NO OTHER WORDS TONIGHT. HAS BEEN SUCKING ON ICE CHIPS WITHOUT ANY COUGHING. ENMA Q2 HR TURNS WELL. HAS NOT BEEN PULLING AT HIS LINES. FC PATENT AND DRAINING TEA COLORED URINE WITH SMALL AMTS OF RED SEDIMENT. BED LOW, BED ALARM ON, CALL BUTTON IN REACH.
[2019-06-16 08:50] LABS: BASOPHILS ABSOLUTE AUTO 0.03 K/mm3 (0.00-0.23); BASOPHILS PERCENT AUTO 0 % (0-2); EOSINOPHILS ABSOLUTE AUTO 0.14 K/mm3 (0.00-0.68); EOSINOPHILS PERCENT AUTO 2 % (0-6); Hematocrit 25.1 % (37.0-53.0); Hemoglobin 7.6 g/dL (13.5-17.5); IMMATURE GRAN ABSOLUTE AUTO 0.02 K/mm3 (0.00-0.10); IMMATURE GRAN PERCENT AUTO 0 % (0-1); LYMPHOCYTES ABSOLUTE AUTO 2.43 K/mm3 (0.84-5.20); LYMPHOCYTES PERCENT AUTO 30 % (21-46); MONOCYTES ABSOLUTE AUTO 0.43 K/mm3 (0.16-1.47); MONOCYTES PERCENT AUTO 5 % (4-13); Mean Corpuscular HGB 34.2 pg (26.0-34.0); Mean Corpuscular HGB Conc 30.3 g/dL (31.5-36.5); Mean Corpuscular Volume 113 fL (80-100); Mean Platelet Volume 10.6 fL (9.1-12.4); NEUTROPHILS ABSOLUTE AUTO 4.97 K/mm3 (1.96-9.15); NEUTROPHILS PERCENT AUTO 62 % (41-73); Platelet Count 128 K/mm3 (150-400); RDW Coefficient Variation 15.6 % (11.7-14.2); RDW Standard Deviation 64.6 fL (35.1-46.3); Red Blood Cell Count 2.22 M/mm3 (4.30-5.90); White Blood Cell Count 8.02 K/mm3 (4.00-11.30)
[2019-06-16 09:08] LABS: Alanine Aminotransfer (ALT/SGP 43 U/L (12-78); Albumin, Blood 2.1 g/dL (3.4-5.0); Albumin/Globulin Ratio 0.5 (0.8-1.8); Alk Phos 134 U/L (50-136); Anion Gap 8 mmol/L (6-16); Aspartate Aminotrans (AST/SGOT 45 U/L (12-37); Bilirubin, Total 0.8 mg/dL (0.1-1.0); Blood Urea Nitrogen 19 mg/dL (8-24); Bun/Creatinine Ratio 27.3 (12.0-20.0); CO2, Blood 20 mmol/L (21-32); Calcium, Blood 7.5 mg/dL (8.5-10.1); Chloride, Blood 117 mmol/L (98-108); Glomerular Filtration Rate >60 (60-); Glucose, Blood 200 mg/dL (70-99); Potassium, Blood 3.6 mmol/L (3.5-5.5); Sodium, Blood 145 mmol/L (136-145); Total Protein, Blood 6.1 g/dL (6.4-8.2)
--- NOTE | 2019-06-16 17:10 | NUR ---
PATIENT CONITNUES TO BE CONFUSED. WILL FOLLOW SIMPLE COMMANDS AT TIMES. UP TO CHAIR WITH 2 MAX ASSIST TODAY. ADVANCED TO A PUREE DIET WITH HONEY THICK LIQUIDS, PATIENT IS A FEEDER. RODRÍGUEZ D/C'D AND PATIENT HAS BEEN INCONTINENT OF URINE/STOOL. LUNGS CLEAR, ON RA. POWER GLIDE TO BERTHA WNL, 1/2NS INFUSING AT 150ML/HR. FALL PRECAUTIONS IN PLACE PER UNIT PROTOCOL. PATIENT'S SON AT BEDSIDE FOR MOST OF THE SHIFT. SKIN INTACT, 2+ EDEMA TO BUE/ SCD'S IN PLACE FOR DVT PROPHYLAXIS.
[2019-06-17 05:51] LABS: BASOPHILS ABSOLUTE AUTO 0.02 K/mm3 (0.00-0.23); BASOPHILS PERCENT AUTO 0 % (0-2); EOSINOPHILS ABSOLUTE AUTO 0.11 K/mm3 (0.00-0.68); EOSINOPHILS PERCENT AUTO 2 % (0-6); Hematocrit 22.8 % (37.0-53.0); Hemoglobin 7.1 g/dL (13.5-17.5); IMMATURE GRAN ABSOLUTE AUTO 0.02 K/mm3 (0.00-0.10); IMMATURE GRAN PERCENT AUTO 0 % (0-1); LYMPHOCYTES ABSOLUTE AUTO 1.98 K/mm3 (0.84-5.20); LYMPHOCYTES PERCENT AUTO 36 % (21-46); MONOCYTES ABSOLUTE AUTO 0.29 K/mm3 (0.16-1.47); MONOCYTES PERCENT AUTO 5 % (4-13); Mean Corpuscular HGB 34.6 pg (26.0-34.0); Mean Corpuscular HGB Conc 31.1 g/dL (31.5-36.5); Mean Corpuscular Volume 111 fL (80-100); Mean Platelet Volume 10.6 fL (9.1-12.4); NEUTROPHILS ABSOLUTE AUTO 3.08 K/mm3 (1.96-9.15); NEUTROPHILS PERCENT AUTO 56 % (41-73); Platelet Count 104 K/mm3 (150-400); RDW Coefficient Variation 14.8 % (11.7-14.2); RDW Standard Deviation 60.7 fL (35.1-46.3); Red Blood Cell Count 2.05 M/mm3 (4.30-5.90)
[2019-06-17 06:12] LABS: Alanine Aminotransfer (ALT/SGP 36 U/L (12-78); Albumin, Blood 2.3 g/dL (3.4-5.0); Albumin/Globulin Ratio 0.7 (0.8-1.8); Alk Phos 118 U/L (50-136); Anion Gap 8 mmol/L (6-16); Aspartate Aminotrans (AST/SGOT 37 U/L (12-37); Bilirubin, Total 0.9 mg/dL (0.1-1.0); Blood Urea Nitrogen 16 mg/dL (8-24); Bun/Creatinine Ratio 23.4 (12.0-20.0); CO2, Blood 22 mmol/L (21-32); Calcium, Blood 7.3 mg/dL (8.5-10.1); Chloride, Blood 115 mmol/L (98-108); Creatinine, Blood 0.68 mg/dL (0.60-1.20); Globulin, Blood 3.5 g/dL (2.2-4.0); Glomerular Filtration Rate >60 (60-); Glucose, Blood 204 mg/dL (70-99); Potassium, Blood 3.2 mmol/L (3.5-5.5); Sodium, Blood 145 mmol/L (136-145); Total Protein, Blood 5.8 g/dL (6.4-8.2)
--- NOTE | 2019-06-17 07:26 | NUR ---
Shift Summary PAtient slept well between cares. Assited to reposition q2h
--- NOTE | 2019-06-17 13:53 | NUR ---
advance directive information given. will follow up with aon care from GI and prognosis and understaning of disease.
[2019-06-17 18:38] LABS: Source, Urine Catheter
[2019-06-17 18:52] LABS: Bilirubin, Urine Neg (Neg); Blood, Urine 1+ (Neg); Glucose Qualitative, Urine 4+ (Neg); Ketones, Urine 1+ (Neg); Leukocyte Esterase, Urine Neg (Neg); Nitrite, Urine Neg (Neg); Protein, Urine Neg (Neg); Specific Gravity, Urine 1.015 (1.003-1.022); Urobilinogen, Urine NORM (Normal)
[2019-06-17 19:01] LABS: Appearance, Urine Clear (Clear); Color, Urine Yellow (P-Yellow)
[2019-06-17 19:03] LABS: Bacteria Rare /hpf; Red Blood Cells, Urine 0-2 /hpf (0-2); Squamous Epithelial Cells Rare /hpf (Few); White Blood Cells, Urine Rare /hpf (0-5)
--- NOTE | 2019-06-17 19:35 | NUR ---
PATIENT IS ALERT. ORIENTED TO FAMILY. HE WAS COOPERATIVE THIS MORNING AND BECAME INCREASING UNCOOPERATIVE THROUGHOUT THE DAY. HE RECIEVED ONE UNTI OF PRBC THIS MORNING, TOLERATED IT WELL. HGB 7.1. PATIENT WAS UNABLE TO FOLLOW DIRECTIION AND USE THE URINAL. BLADDER SCAN THIS AFTERNOON REVEALED 835ML OF URIN, BLADDER SCAN THIS EVENING REVEALED 600ML OF URINE. RN STRAIGHT CATHED THE PATIENT THIS MORNING AND PLACED A RODRÍGUEZ THIS EVENING. DR. SALAZAR NOTIFIED. FAMILY WAS AT THE BEDSIDE THROUGHOUT THE DAY. PATIENT IS A FEEDER.
--- NOTE | 2019-06-18 07:36 | NUR ---
06/18/19 0620 PT VERY SLEEPY THIS SHIFT. DID NOT LIKE GETTING AWAKENED FOR NURSING CARE INCLUDING TURNING. ALERT TO SELF ONLY. ENCOURAGED ORAL INTAKE BUT RESISTANT TO DRINKING AND EATING. RODRÍGUEZ PATENT AND DRAINING CLEAR, LUPE URINE. HAD ONE SOFT, BROWN BM EARLY IN SHIFT. SON CAME IN TO STAY WITH HIM PART OF THE NIGHT.VITALS STABLE.
[2019-06-18 09:33] LABS: Anion Gap 9 mmol/L (6-16); Blood Urea Nitrogen 12 mg/dL (8-24); Bun/Creatinine Ratio 18.2 (12.0-20.0); CO2, Blood 21 mmol/L (21-32); Calcium, Blood 7.2 mg/dL (8.5-10.1); Chloride, Blood 112 mmol/L (98-108); Creatinine, Blood 0.66 mg/dL (0.60-1.20); Glomerular Filtration Rate >60 (60-); Glucose, Blood 231 mg/dL (70-99); Potassium, Blood 3.2 mmol/L (3.5-5.5); Sodium, Blood 142 mmol/L (136-145)
[2019-06-18 09:49] LABS: BASOPHILS ABSOLUTE AUTO 0.02 K/mm3 (0.00-0.23); BASOPHILS PERCENT AUTO 0 % (0-2); EOSINOPHILS ABSOLUTE AUTO 0.12 K/mm3 (0.00-0.68); EOSINOPHILS PERCENT AUTO 2 % (0-6); Hematocrit 25.9 % (37.0-53.0); Hemoglobin 8.2 g/dL (13.5-17.5); IMMATURE GRAN ABSOLUTE AUTO 0.01 K/mm3 (0.00-0.10); IMMATURE GRAN PERCENT AUTO 0 % (0-1); LYMPHOCYTES ABSOLUTE AUTO 1.96 K/mm3 (0.84-5.20); LYMPHOCYTES PERCENT AUTO 35 % (21-46); MONOCYTES ABSOLUTE AUTO 0.37 K/mm3 (0.16-1.47); MONOCYTES PERCENT AUTO 7 % (4-13); Mean Corpuscular HGB 33.6 pg (26.0-34.0); Mean Corpuscular HGB Conc 31.7 g/dL (31.5-36.5); Mean Platelet Volume 10.6 fL (9.1-12.4); NEUTROPHILS ABSOLUTE AUTO 3.06 K/mm3 (1.96-9.15); NEUTROPHILS PERCENT AUTO 55 % (41-73); Platelet Count 104 K/mm3 (150-400); RDW Coefficient Variation 17.5 % (11.7-14.2); RDW Standard Deviation 68.6 fL (35.1-46.3); Red Blood Cell Count 2.44 M/mm3 (4.30-5.90); White Blood Cell Count 5.54 K/mm3 (4.00-11.30)
[2019-06-18 10:03] LABS: Mean Corpuscular Volume 106 fL (80-100)
--- NOTE | 2019-06-18 19:46 | NUR ---
06/18/191904 EMPLOYMENT APPEALS EXAMINER FOUND POWER GLIDE IV LAYING ON BED LINEN. PT CONFUSED AND NON-SENSIBLE. SUPERVISOR FINALNAVDEEP COE NOTIFIED. RN WILL NOTIFY ON-CALL MD.
--- NOTE | 2019-06-18 20:08 | NUR ---
06/18/191949 PT PULLING AT RODRÍGUEZ CATHETER AND INFORMED HIM NOT TO PULL BUT TALKING NON-SENSICAL. ON VIDEO MONITORING.
[2019-06-19 04:55] LABS: BASOPHILS ABSOLUTE AUTO 0.03 K/mm3 (0.00-0.23); BASOPHILS PERCENT AUTO 1 % (0-2); EOSINOPHILS ABSOLUTE AUTO 0.11 K/mm3 (0.00-0.68); EOSINOPHILS PERCENT AUTO 3 % (0-6); Hematocrit 23.9 % (37.0-53.0); Hemoglobin 7.3 g/dL (13.5-17.5); IMMATURE GRAN ABSOLUTE AUTO 0.01 K/mm3 (0.00-0.10); IMMATURE GRAN PERCENT AUTO 0 % (0-1); LYMPHOCYTES ABSOLUTE AUTO 1.71 K/mm3 (0.84-5.20); LYMPHOCYTES PERCENT AUTO 40 % (21-46); MONOCYTES PERCENT AUTO 7 % (4-13); Mean Corpuscular HGB 32.3 pg (26.0-34.0); Mean Corpuscular HGB Conc 30.5 g/dL (31.5-36.5); Mean Corpuscular Volume 106 fL (80-100); NEUTROPHILS ABSOLUTE AUTO 2.17 K/mm3 (1.96-9.15); NEUTROPHILS PERCENT AUTO 50 % (41-73); Platelet Count 88 K/mm3 (150-400); RDW Coefficient Variation 17.1 % (11.7-14.2); RDW Standard Deviation 66.1 fL (35.1-46.3); Red Blood Cell Count 2.26 M/mm3 (4.30-5.90); White Blood Cell Count 4.33 K/mm3 (4.00-11.30)
[2019-06-19 05:19] LABS: Alanine Aminotransfer (ALT/SGP 33 U/L (12-78); Albumin, Blood 2.2 g/dL (3.4-5.0); Albumin/Globulin Ratio 0.6 (0.8-1.8); Alk Phos 108 U/L (50-136); Anion Gap 7 mmol/L (6-16); Aspartate Aminotrans (AST/SGOT 37 U/L (12-37); Bilirubin, Total 1.2 mg/dL (0.1-1.0); Blood Urea Nitrogen 10 mg/dL (8-24); CO2, Blood 23 mmol/L (21-32); Calcium, Blood 7.5 mg/dL (8.5-10.1); Chloride, Blood 114 mmol/L (98-108); Creatinine, Blood 0.67 mg/dL (0.60-1.20); Globulin, Blood 3.5 g/dL (2.2-4.0); Glomerular Filtration Rate >60 (60-); Glucose, Blood 228 mg/dL (70-99); Potassium, Blood 3.4 mmol/L (3.5-5.5); Sodium, Blood 144 mmol/L (136-145); Total Protein, Blood 5.7 g/dL (6.4-8.2)
--- NOTE | 2019-06-19 07:39 | NUR ---
06/19/19 0600 PT REPOSITIONED Q 2 HOURS WITH HELP OF 2 STAFF. MARCOS PATENT. VITALS STABLE. PT HAD ONE GREEN BM ABOUT 2230 LAST NIGHT. RESTRAINTS MAINTAINED.
[2019-06-19] MEDS ORDERED: NADO40 PO (08:57)
--- NOTE | 2019-06-19 11:24 | NUR ---
ISTRATE IN ROOM DURING BP AND NOTIFIED OF BP OF 167/80. NEW ORDERS INITIATED AND IV LASIX TO BE GIVEN PRIOR TO BLOOD ADMIN.
[2019-06-19 17:39] LABS: Hematocrit 27.4 % (37.0-53.0); Hemoglobin 8.8 g/dL (13.5-17.5); Mean Corpuscular HGB 33.6 pg (26.0-34.0); Mean Corpuscular HGB Conc 32.1 g/dL (31.5-36.5); Mean Corpuscular Volume 105 fL (80-100); Mean Platelet Volume 10.8 fL (9.1-12.4); Platelet Count 87 K/mm3 (150-400); RDW Coefficient Variation 18.2 % (11.7-14.2); RDW Standard Deviation 69.8 fL (35.1-46.3); Red Blood Cell Count 2.62 M/mm3 (4.30-5.90); White Blood Cell Count 4.42 K/mm3 (4.00-11.30)
--- NOTE | 2019-06-19 18:54 | NUR ---
SHIFT SUMMARY PT AXO TO 0 BUT PLEASANT AND COOPERATIVE WITH CARE. PT RECIEVED ONE UNIT PRBC PER ORDER. UPON MORNING MED ADMINISTRATION, PT WAS ABLE TO SWALLOW THE FIRST TWO BITES OF HIS CRUSHED MEDS IN JELLO BUT AFTER THAT AND WITH MEALS, PT DID NOT SWALLOW FOOD. DR NOTIFIED AND SAND SIFTER CONSULT ORDERED. CLINIMIX RUNNING PER EMAR. SEE NOTE ABOUT BP. PT CONTINUES TO NEED RESTRAINS TO PROTECT LINES. MARCOS ZAVALETA'Maame AT 1600, STILL AWAITING FIRST VOID AT THIS TIME. BED IN LOW POSITION, CALL LIGHT WITHIN REACH, BED ALARM ON. REPORT GIVEN TO WASTEWATER TREATMENT PLANT ATTENDANT NURSE WHO ASSUMES CARE AT THIS TIME.
[2019-06-20 04:53] LABS: BASOPHILS ABSOLUTE AUTO 0.03 K/mm3 (0.00-0.23); BASOPHILS PERCENT AUTO 1 % (0-2); EOSINOPHILS ABSOLUTE AUTO 0.15 K/mm3 (0.00-0.68); EOSINOPHILS PERCENT AUTO 4 % (0-6); Hematocrit 27.1 % (37.0-53.0); Hemoglobin 8.7 g/dL (13.5-17.5); IMMATURE GRAN ABSOLUTE AUTO 0.01 K/mm3 (0.00-0.10); IMMATURE GRAN PERCENT AUTO 0 % (0-1); LYMPHOCYTES ABSOLUTE AUTO 1.43 K/mm3 (0.84-5.20); LYMPHOCYTES PERCENT AUTO 37 % (21-46); MONOCYTES ABSOLUTE AUTO 0.26 K/mm3 (0.16-1.47); MONOCYTES PERCENT AUTO 7 % (4-13); Mean Corpuscular HGB Conc 32.1 g/dL (31.5-36.5); Mean Corpuscular Volume 103 fL (80-100); Mean Platelet Volume 10.9 fL (9.1-12.4); NEUTROPHILS ABSOLUTE AUTO 2.02 K/mm3 (1.96-9.15); NEUTROPHILS PERCENT AUTO 52 % (41-73); Platelet Count 100 K/mm3 (150-400); RDW Coefficient Variation 18.1 % (11.7-14.2); RDW Standard Deviation 67.8 fL (35.1-46.3); Red Blood Cell Count 2.64 M/mm3 (4.30-5.90)
[2019-06-20 05:12] LABS: Alanine Aminotransfer (ALT/SGP 36 U/L (12-78); Albumin, Blood 2.1 g/dL (3.4-5.0); Albumin/Globulin Ratio 0.6 (0.8-1.8); Alk Phos 108 U/L (50-136); Anion Gap 8 mmol/L (6-16); Aspartate Aminotrans (AST/SGOT 39 U/L (12-37); Bilirubin, Total 0.9 mg/dL (0.1-1.0); Blood Urea Nitrogen 9 mg/dL (8-24); Bun/Creatinine Ratio 14.5 (12.0-20.0); CO2, Blood 25 mmol/L (21-32); Calcium, Blood 7.5 mg/dL (8.5-10.1); Chloride, Blood 110 mmol/L (98-108); Creatinine, Blood 0.62 mg/dL (0.60-1.20); Globulin, Blood 3.8 g/dL (2.2-4.0); Glomerular Filtration Rate >60 (60-); Glucose, Blood 244 mg/dL (70-99); Magnesium, Blood 1.4 mg/dL (1.6-2.4); Phosphorus, Blood 2.9 mg/dL (2.5-4.9); Potassium, Blood 3.5 mmol/L (3.5-5.5); Sodium, Blood 143 mmol/L (136-145); Total Protein, Blood 5.9 g/dL (6.4-8.2); Triglycerides 186 mg/dL (30-160)
--- NOTE | 2019-06-20 07:15 | NUR ---
06/20/19 0610 AWAKE. AM MEDS GIVEN WITH MELISSA. STILL WITH WORD SALAD SPEECH BUT OCC WILL SAY A COMPLETE SENTENCE. DAUGHTER STAYED ALL NIGHT. INCONTINENT OF LARGE AMT OF YELLOW URINE IN ATTENDS. VITALS STABLE. NO STOOLS THIS SHIFT.
[2019-06-20 12:48] LABS: Stool Occult Blood Guaiac 1 Neg (Neg)
--- NOTE | 2019-06-20 16:32 | NUR ---
Received call from Gear Cutting Machine Set Up Operator Bhupinder and discussed case. Bhupinder expresses concerns regarding Pt's refusal of significant intake and goals of care. Received call from Caremanager Sharonkunal expressing concerns regarding family's expectation of Pt's recovery and their ability to care for Pt. Spoke with bedside RN Ashlyn and discussed case. Ashlyn reports similar concerns including daughters understanding of care Pt will need. Pt is resting in bed upon arrival and is currently in restraints. Pt is unable to answer questions and often times repeats question back indicating difficulty processing. Palliative Care will F/U with family.
--- NOTE | 2019-06-20 17:03 | NUR ---
Pt's son Ino visiting this evening. Pt resting in bed and appears comfortable. Engaged in therapeutic discussion regarding advanced care planning and the importance to consider the possibility needing a higher level of care or hiring in home caregivers. Educated on the importance of establishing with PCP and having routine conversations regarding disease process. Discussed the possibility of the need to consider hospice at some point of disease process. Pt has been refusing much of his intake and if continues may need to explore other options for nutritional intake. During conversation son does not appear to be receptive of conversation and appears mildly defensive as evidenced by body language and responses to information. Ended visit to allow son to visit with Pt. Discussed case with bedside RN Ashlyn. Palliative Care will remain available.
--- NOTE | 2019-06-20 19:17 | NUR ---
NO ACUTE CHANGES NOTED. NO CURRENT COMPLAINTS OF PAIN OR DISCOMFORT NOTED. RESTRIANTS IN PLACE TO KEEP PATIENT FROM YUDY OUT IV LINES. WILL CONTINUE TO MONITOR FOR CHANGES.
[2019-06-21 05:10] LABS: BASOPHILS ABSOLUTE AUTO 0.02 K/mm3 (0.00-0.23); BASOPHILS PERCENT AUTO 0 % (0-2); EOSINOPHILS ABSOLUTE AUTO 0.11 K/mm3 (0.00-0.68); EOSINOPHILS PERCENT AUTO 3 % (0-6); Hemoglobin 8.9 g/dL (13.5-17.5); IMMATURE GRAN ABSOLUTE AUTO 0.01 K/mm3 (0.00-0.10); IMMATURE GRAN PERCENT AUTO 0 % (0-1); LYMPHOCYTES ABSOLUTE AUTO 1.63 K/mm3 (0.84-5.20); LYMPHOCYTES PERCENT AUTO 37 % (21-46); MONOCYTES ABSOLUTE AUTO 0.35 K/mm3 (0.16-1.47); MONOCYTES PERCENT AUTO 8 % (4-13); Mean Corpuscular HGB 33.1 pg (26.0-34.0); Mean Corpuscular HGB Conc 31.8 g/dL (31.5-36.5); Mean Corpuscular Volume 104 fL (80-100); Mean Platelet Volume 11.2 fL (9.1-12.4); NEUTROPHILS ABSOLUTE AUTO 2.33 K/mm3 (1.96-9.15); NEUTROPHILS PERCENT AUTO 52 % (41-73); Platelet Count 93 K/mm3 (150-400); RDW Coefficient Variation 17.1 % (11.7-14.2); RDW Standard Deviation 65.4 fL (35.1-46.3); Red Blood Cell Count 2.69 M/mm3 (4.30-5.90); White Blood Cell Count 4.45 K/mm3 (4.00-11.30)
[2019-06-21 05:33] LABS: Alanine Aminotransfer (ALT/SGP 33 U/L (12-78); Albumin, Blood 2.2 g/dL (3.4-5.0); Albumin/Globulin Ratio 0.6 (0.8-1.8); Alk Phos 106 U/L (50-136); Anion Gap 7 mmol/L (6-16); Aspartate Aminotrans (AST/SGOT 39 U/L (12-37); Bilirubin, Total 0.7 mg/dL (0.1-1.0); Blood Urea Nitrogen 11 mg/dL (8-24); Bun/Creatinine Ratio 17.9 (12.0-20.0); CO2, Blood 27 mmol/L (21-32); Calcium, Blood 7.7 mg/dL (8.5-10.1); Chloride, Blood 107 mmol/L (98-108); Creatinine, Blood 0.62 mg/dL (0.60-1.20); Glomerular Filtration Rate >60 (60-); Glucose, Blood 222 mg/dL (70-99); Magnesium, Blood 1.3 mg/dL (1.6-2.4); Phosphorus, Blood 2.9 mg/dL (2.5-4.9); Potassium, Blood 3.3 mmol/L (3.5-5.5); Sodium, Blood 141 mmol/L (136-145); Total Protein, Blood 6.2 g/dL (6.4-8.2)
--- NOTE | 2019-06-21 07:35 | NUR ---
[place] SUMMARY slept most of night after midnight. Son stayed over with Dad. Patient tolerating IVF without difficulty. several trials of removing bilat wrist restraints while staff in room ended in patient picking at IV. When son arrived, patient was able to remain off restraints without pulling on IV. restraints were removed completely at 2345. Error by this RN, the actual order was not dc'd until this morning. Patient spit out all HS meds (twice). tried crushing in applesauce, then pudding. In AM, patient refused protonix in jello, son was also in room and unable to get his dad to take meds.
--- NOTE | 2019-06-21 09:58 | NUR ---
Clinical Visit: Pt is not oriented. He is sitting quietly in bed. No s/s of distress. Spoke with speech therapy. Pat states that pt unable to swallow and maintain diet. Not following directions and needs 100% help with ADLs. Spoke with Dr. Mensah. He has counseled the family on pt's current status and would like palliative care to follow up with hospice and/or PEG tube placement options. Pt's son is bedside. He has one other sibling, a sister. Pt has a . They make decisions as a group. Presented options of PEG tube placement for management of nutrition. Counseled that pt will likely not recover to any meaningful quality of life and is not rehab appropriate. Pt will need PEG tube to continue surviving. Son reports that this is probably the route that the family will want to go. Also counseled on pt's present mindset and permanent brain damage. Option of hospice care also presented. Son is in some shock with news and reports that he has been surprised by the pt's medical conditions in the last few weeks. He did not have knowledge that the pt had liver damage. The purpose of lactulose was described to him by nursing and he is still reeling emotionally from the revelations of his father's health. He reports that his father recently told him [about family health dispositions] "you don't know the half of it." Son will contact family members and ask them what their course of action should be. Reiterated options of PEG tube/hospice. Reviewed setting goals. Son is stating that his sister is home, making arragements for the pt to be discharged safely there in her care. He is to update family and follow up with the nurse and palliative care to notify of the family's decision. Will remain available.
--- NOTE | 2019-06-21 14:04 | NUR ---
After discussion with Speech Therapist, Anaya, followed up with pt's son, Ino. He is encouraged by pt's progress with food. Discussed further care. Ino is stating that the family would still like to move the pt down to [place] where is sister is. Reviewed that pt would need full supervison 24 hours a day and could not be left alone. Furthermore, pt is in adult diapers and a long car ride would be difficult for both he and the caregivers. Son is appearing very confused about care instructions. He is requesting that if I call the spouse, I do not mention hospice option. Instructed that since she is his spouse, she is also her decision maker. He doesn't feel that she can "handle" this kind of news. He is headed home to catch her up on what is happening with him now. Urged to consider hospice and placement. Call to spouse, Carmita. There are loud noises in the background and she states that she has "a lot going on." She hands the phone to Ino, who is with her now. Instructed Ino to please communicate our conversations to Carmita, and to please return call to my number to follow up on further planning. Message left with Yue, discharge business development manager, to please follow up with me as well. Optimal plan seems to discharge pt to placement with hospice, although family is wanting to take him to his daughter's home to live with family as caregivers. It does not appear that the family would be readily able to take the pt and considerable teaching and planning would be required to have the pt safely discharged there.
--- NOTE | 2019-06-21 19:23 | NUR ---
SHIFT SUMMARY HYPOGLYCEMIC BRAIN INJURY. CLINAMIX AND LIPIDS RUNNING. DECREASED PO INTAKE. REFUSED MEDICATIONS AND FOOD AT TIMES OTHER TIMES COMPLIED. FAMILY AT BEDSIDE THROUGHOUT THE DAY. CARE MANAGEMENT AND PALLIATIVE CARE INVOLVED TO HELP WITH PLACEMENT OPTIONS. INCONTINENT AND BECOMES COMBATIVE WITH ATTENDS CHANGES.
--- NOTE | 2019-06-22 04:11 | NUR ---
PATIENT'S SON ASKED THAT IV BE TURNED OFF PATIENT KEPT MOVING AND SETTING OFF IV AND BED ALARMS. BILAT WRIST SOFT WRIST RESTRAINTS IN PLACE, AND SON ASKED THAT THEY BE TAKEN OFF LONG HE WAS IN THE ROOM. SON WAS VERY TEARFUL AND STATED THE DOCTOR HAD TOLD HIM YESTERDAY THAT HIS FATHERS MENTATION AND ENCEPHALOPATHY WOULD LIKELY NOT IMPROVE, THAT HE HAD TAKEN A LARGE INJURY TO HIS BRAIN. SON WANTS TO SPEAK WITH IN AM ABOUT CHANGING HIM TO PALLIATIVE/HOSPICE CARE AND CHANGING HIS STATUS TO DNR COMFORT CARE. TIMUR REFUSED ALL MEDICATIONS THIS EVENING. ASA HE HAD DONE WITH MOST MEDS YESTERDAY. WILL CONTINUE MONITORING CLOSELY FOR SAFETY.
--- NOTE | 2019-06-22 05:34 | NUR ---
PATIENT FAMILY REFUSED TO HAVE LAB DRAWN THIS AM. FAMILY ALSO REFUSED TO ALLOW AIR TRANSPORT PROFESSIONALS TO ENTER ROOM TO ART OBJECTS SALESPERSON TRASH AND TO CHECK PATIENT BRIEFS. NIGHT HOSPITALIST NOTIFIED OF FAMILIES WISH TO CHANGE FATHERS CODE STATUS TO COMFORT.
--- NOTE | 2019-06-22 06:44 | NUR ---
WRIST RESTRAINTS REMOVED BY SON AFTER 15 MINUTES. "i WON'T BE LEAVING DAD'S BEDSIDE TODAY".
[2019-06-22 10:39] LABS: BASOPHILS ABSOLUTE AUTO 0.02 K/mm3 (0.00-0.23); BASOPHILS PERCENT AUTO 0 % (0-2); EOSINOPHILS ABSOLUTE AUTO 0.16 K/mm3 (0.00-0.68); EOSINOPHILS PERCENT AUTO 3 % (0-6); Hematocrit 29.2 % (37.0-53.0); Hemoglobin 9.2 g/dL (13.5-17.5); IMMATURE GRAN ABSOLUTE AUTO 0.01 K/mm3 (0.00-0.10); IMMATURE GRAN PERCENT AUTO 0 % (0-1); LYMPHOCYTES ABSOLUTE AUTO 1.87 K/mm3 (0.84-5.20); LYMPHOCYTES PERCENT AUTO 38 % (21-46); MONOCYTES ABSOLUTE AUTO 0.28 K/mm3 (0.16-1.47); MONOCYTES PERCENT AUTO 6 % (4-13); Mean Corpuscular HGB 31.9 pg (26.0-34.0); Mean Corpuscular HGB Conc 31.5 g/dL (31.5-36.5); NEUTROPHILS ABSOLUTE AUTO 2.56 K/mm3 (1.96-9.15); NEUTROPHILS PERCENT AUTO 52 % (41-73); Platelet Count 85 K/mm3 (150-400); RDW Coefficient Variation 16.3 % (11.7-14.2); RDW Standard Deviation 61.5 fL (35.1-46.3); Red Blood Cell Count 2.88 M/mm3 (4.30-5.90)
[2019-06-22 10:41] LABS: Mean Corpuscular Volume 101 fL (80-100)
[2019-06-22 10:58] LABS: Alanine Aminotransfer (ALT/SGP 36 U/L (12-78); Albumin, Blood 2.3 g/dL (3.4-5.0); Albumin/Globulin Ratio 0.5 (0.8-1.8); Alk Phos 115 U/L (50-136); Anion Gap 6 mmol/L (6-16); Aspartate Aminotrans (AST/SGOT 43 U/L (12-37); Bilirubin, Total 0.9 mg/dL (0.1-1.0); Blood Urea Nitrogen 10 mg/dL (8-24); Bun/Creatinine Ratio 18.1 (12.0-20.0); CO2, Blood 28 mmol/L (21-32); Calcium, Blood 7.8 mg/dL (8.5-10.1); Chloride, Blood 107 mmol/L (98-108); Creatinine, Blood 0.55 mg/dL (0.60-1.20); Globulin, Blood 4.3 g/dL (2.2-4.0); Glomerular Filtration Rate >60 (60-); Glucose, Blood 192 mg/dL (70-99); Potassium, Blood 3.5 mmol/L (3.5-5.5); Sodium, Blood 141 mmol/L (136-145); Total Protein, Blood 6.6 g/dL (6.4-8.2)
--- NOTE | 2019-06-22 13:00 | NUR ---
Clinical Visit: Discussion with family members earlier today. Mariaa, pt's daughter is present. She also has a friend with her. Pt's son, Ino is also present. Discussed plan and pt's progress. Mariaa is speaking angrily at her father, telling him, "you gotta fucking go to the bathroom, you gotta eat..." She is pointing at him and cussing. She explains that this is so "he will do it if I tell him to." She states, "you see him looking at us. He understands what I'm saying. See dad? I'm not even asking for money right now and you're still ignoring me." She explains that she is usually asking for money when she is around him, and that he should be grateful that she is here, just to support him. She reports that the plan is still to move him to [place] where she is living, due to his current living status to be a much smaller area than what she has in [place]. Her friend is at bedside cussing as well. She is showing me messages from her ex-boyfriend. I attempt to redirect the communication and conversation to the pt's plan and best interests. The group is difficult to redirect and there is no progress made in arrangements and no meaningful information being shared. Pt's son, Ino, is talking to his father. He reports that "he was done yesterday. Like he just gave up and he was dying. I think I talked him back into living." Family's understanding of the situation is poor. This group of people left. Pt's came in to see him. She appears to be more understanding of the situation and is actively engaging in the conversation. Dr. Mensah is bedside and she is asking good questions. She knows that comfort care and hospice is still an option, but she would like to make those decisons later, after the psychologist has made his evaluation and given some input. She reports that she lives in a trailer and does not have room to take care of the patient in the small area she has. She seems quite upset with her lack of resources and ability to care for him. Time spent with her is productive. She appears to have a lower education level, but is verbalizing understanding adequately when she is questioned about the information. She trusts her daughter and others to take care of him. She is encouraged by the pt's small forward progress and is hopeful he will recover more meaningfully. She is also considering the comfort care and hospice plan. Discussed with nursing. Nurse has asked remote monitoring to carefully watch the family's interactions to make sure that they remain appropriate. She is ready to intervene if the daughter appears to be yelling at the pt again. Will reinforce the need for a healing enviornment and reduced stress for the pt. Palliative care to remain available for further conversation and to chemical dependency counselor family on new progress and available plans for safe discharge.
--- NOTE | 2019-06-22 16:11 | NUR ---
Clinical Visit: Pt is alert. Pt is conversationally exchanging more. I said, "hi," and he states, "hey." I ask, "how are you?" he states, "I'm good." This is a big improvement from even this morning. is at bedside and reports that pt has been eating and now he is asking for more jello. She is encouraged by his improvement. Discussed care and plans out in the hallway. She is asking about what happens next. Reviewed plans for the psychologist to come see him and make an evaluation. She is not wanting pt to go home with Mariaa. She believes that Mariaa will not be able to handle him. She is tearful and states that her trailer is too small for him to live in and she has severe back issues and health problems that make it impossible for her to care for him herself. She is also usually taking care of two small grandchildren. She states that she would not want him to go to [facility], but [place] would be better. Discussed placment. She does not want to do this, and he has expressed in the past that he would not want to live somewhere such as that, but she feels that maybe that would be the best thing. Spoke with Jeannie. She states that the pt will need a payer source for placement. She has already asked the daughter, Mariaa, to do this days ago and she refused. Checklist and application phone number obtained from Jeannie. Followed up with the . Provided her with the information for Medicaid application. She states that she will call the number first thing tomorrow. She reports that she doesn't have money: She may not have enough money to pay bills this month. Encouraged her to call the number and ask to get the process started. She voices understanding. Reviewed pt's progress again with her. She is feeling good that he has showed improvement. Discussed with nurse. She is following up with Dr. Mensah to determine if the pt still needs lipids. Will remain available for this family. I have met all members and have a good rapport.
--- NOTE | 2019-06-22 16:58 | NUR ---
BLOOD SUGARS CHANGED PT SWITCHED TO [facility] BLOOD SUGAR & INSULIN ADMIN TIMES. PT EATING WELL THIS SHIFT. DR. VAZQUEZ CALLED & NOTIIFED OF THIS. NEW ORDERS PLACED.
--- NOTE | 2019-06-22 17:37 | NUR ---
SHIFT SUMMARY PT ATE LUNCH & SNACKED THIS SHIFT. SEE CHANGES TO INSULIN & BLOOD SUGARS. NO OTHER CHANGES IN ASSESSMENT. PT ANSWERS SOME QUESTIONS WITH SIMPLE ANSWERS. PALLATIVE SEEING PT. SEE NOTES. DC PLANNING NOW WORKING WITH PT TO START PLACEMENT. WILL CONTINUE TO MONITOR UNTIL TURNOVER IS COMPLETE.
--- NOTE | 2019-06-23 03:16 | NUR ---
COMMONWEALTH ATTORNEY SUMMARY PT A/O X1 TO SELF. PT SLEEPY AND DROWSY THROUGHOUT THE ENTIRE SHIFT. PT OPENS EYES WHEN SPOKEN TO. OTHER THAN THIS, PT DOES NOT RESPOND TO QUESTIONS BEING ASKED AND THEN GOES BACK TO SLEEP. PT'S SON BY BEDSIDE THROUGH OUT THE NIGHT. PT REFUSED NIGHT MEDS AND INSULIN. PT'S SON ALSO SAID TO STAFF TO "LET THE PATIENT BE." CALL LIGHT WITHIN REACH, BED LOWEST POSITION. VSS, WILL CONTINUE TO MONITOR.
--- NOTE | 2019-06-23 05:58 | NUR ---
DRAWBENCH OPERATOR HELPER ATTEMPTED TO OBTAIN MORNING VITALS AND CHANGE PT'S ATTENDS. PT AND PT'S SON REFUSED AND SAID "NO YOU CAN DO IT LATER".
--- NOTE | 2019-06-23 06:19 | NUR ---
PT'S SON REFUSED PT VS TO BE TAKEN THIS AM SAYING TO "JUST LEAVE HIM ALONE FOR NOW". ALSO REFUSED FOR HIM TO BE CHANGED BUT LOOKED LIKE HIS BRIEF WASN'T WET.
--- NOTE | 2019-06-23 08:04 | NUR ---
PT AND SON REFUSING ATTENDS CHANGE, LAB DRAWS AND VITAL SIGNS. SON STATES "PLEASE JUST LEAVE HIM ALONE AND LET HIM SLEEP"; PALLIATIVE CARE AND MD NOTIFIED. PT'S FAMILY EDUCATED ON IMPORTANCE OF VITAL SIGNS AND ATTENDS AND POSITION CHANGES. CONTINUED TO REFUSE. STATES "AFTER THE PSYCH DOCTOR COMES IN WE WILL DECIDE".
--- NOTE | 2019-06-23 19:16 | NUR ---
SHIFT SUMMARY OOB TO CHAIR FOR SEVERAL HOURS TODAY. ABLE TO BEAR WEIGHT BUT LIMITED BY COGNITIVE ABILITY. INCONTINENT. ANSWERS AT TIMES WITH ONE OR TWO WORDS. ONLY SEEMS TO UNDERSTAND SIMPLE REQUESTS OR COMMENTS. FAMILY AND PATIENT REFUSING VITAL SIGNS, MEDS AND ATTENDS CHANGES AT TIMES. PLAN TO DISCHARGE HOME WITH WITH HOME HEALTH PER CARE MANAGEMENT TEAM.
--- NOTE | 2019-06-24 04:53 | NUR ---
SHIFT SUMMARY AOX SELF. LS CLEAR, DENIES SOB. NO C/O NAUSEA OR PAIN. R WRIST IV - SL. RED BOTTOM, NO OPEN AREAS, SCATTERED BRUISING AND SCRATCHES ON ABDOMEN. BLOOD GLUCOSE AC AND HS - REFUSED. DNR STATUS. REFUSED ALL MEDS. REFUSED LABS THIS AM. VSS ON . PLAN IS TO DC HOME ON WEDNESDAY.
--- NOTE | 2019-06-24 06:00 | NUR ---
PT SON AND PT REFUSED MORNING VITALS AND REPOSITION AND ATTENDS CHANGE. SON STATED "JUST LET HIM SLEEP AND COME BACK LATER" NURSE NOTIFIED OF REFUSAL.
--- NOTE | 2019-06-24 15:34 | NUR ---
Clinical Visit: Pt is laying in bed. No s/s of distress. it at bedside. Spoke with her outside of the door. She had called the nursing floor earlier a couple times and the call was transfered to palliative care. She is informing us that she does not intend to take the pt home and not allowing him to go to [place] with her daughter tomorrow. The nurse has called and told Dr. Mensah. She has not called Medicaid number and has not followed through with instructions. She is not going to put a hospital bed in her house, she isn't sure if she will put him on hospice. Instructed that care managers would be here Wednesday. Updated charge nurse. Updated bedside nurse.
--- NOTE | 2019-06-24 15:53 | NUR ---
SHIFT SUMMARY: PT IS ALERT BUT DOES NOT RESPOND TO QUESTIONING TO ESTABLISH A BASELINE FOR ORIENTATION. PT REFUSED ALL MEDS AND TX WELL VITALS AND MEALS WITH THE EXCEPTION OF THIS AFTERNOON WHILE THE WAS AT THE BEDSIDE HE ALLOWED THE EARTH MOVER TO TAKE HIS VS. THE SON HAS BEEN IN THE ROOM SINCE THE START OF THE SHIFT BUT HAS NOTT BEEN ACTIVE IN THE PT'S CARE OR ENGAGED WITH THE STAFF. PT REFUSED HIS SHIFT ASSESSMENT BUT FROM WHAT IS OBSERVED FROM THE BEDSIDE HE IS IN NO ACUTE DISTRESS. RESP ARE EVEN AND UNLABORED. WHEN THE ARRIVED THIS AFTERNOON SHE INFORMED THIS NURSE THAT SHE WOULD NOT BE ABLE TO TAKE HER HOME AND THE DOCTOR WAS MADE AWARE OF THIS AND STATED THAT CASE MANAGEMENT WOULD WORK ON PLACEMENT. PALLIATIVE CARE RN MET WITH THE PT AND FAMILY AND STATED THAT THEY WOULD LIKE TO MOVE TOWARD COMFORT CARE, OF NOW NO NEW ORDERS HAVE BEEN ENETERED. PT REMAINS INC AND DOES NOT MAKE HIS NEEDS KNOWN [place] IT IS UNSURE IF HE IS ABLE TO. PT REQUIRES FREQUENT NURSE ROUNDING AND RE-POSITIONING.
--- NOTE | 2019-06-24 19:19 | NUR ---
Nurse and NURSE STAFF attempted to get VS, but pt refused and wouldnt even talk to staff. Quiet. Will continue to monitor. Call light in [facility].
--- NOTE | 2019-06-24 21:08 | NUR ---
Pt in room, son near bedside. Pt ignored nurse when nurse offered pt HS meds. Nurse made several attempts to encourage pt to speak and take meds. Pt refused all meds. Nurse discussed why meds were ordered, their rationale and that in his refusal, he was accepting the consequences of not taking his meds - i.e. no insulin, blood sugar eleavted, etc. Will continue to monitor. Call light in reach.
--- NOTE | 2019-06-24 22:29 | NUR ---
PT CURRENLTY SLEEPING WITH BACK TURNED TO DOOR. WAS AWAKE EARLIER, REFUSED ALL MEDICATIONS, REFUSED TO ALLOW STAFF TO TAKE VS. rEFUSED TO ALLOW NURSE TO ASSESS HIM. NURSE INFORMED PT THAT HIS REFUSAL OF CARE WOULD NOT HELP HIM GET BETTER. SON AT BEDSIDE, SON STATED THAT HIS FATHER HAS BEEN REFUSING ALL CARE. CALL LIGHT IN REACH. WILL CONTINUE TO MONITOR.
--- NOTE | 2019-06-25 03:03 | NUR ---
PT CURRENTLY RESTING QUIETLY WITHOUT DISTRESS. HOWEVER, THROUGHOUT SHIFT PT HAS REFUSED ALL MEDICATIONS, TREATMENTS AND EVEN TO ALLOW VITAL SIGNS TO BE TAKEN. SON AT BEDSIDE, SON STATED THAT HIS FATHER IS THAT WAY, REFUSED ALL MEDS AND SUCH. WILL CONTINUE TO ENCOURAGE PT TO EAT DIET ORDERED, DRINK FLUIDS, AND TAKE MEDS ORDERED. CALL LIGHT IN REACH.WILL CONTINUE TO MONITOR.
--- NOTE | 2019-06-25 16:04 | NUR ---
SHIFT SUMMARY: PT HAS BEEN SLEEPING IN BED ALL DAY. HE WAS AWAKE THIS MORNING BUT AGAIN REFUSED TO ANSWER ANY QUESTIONS TO ESTABLISH HIS BASELINE. PT REFUSED HIS SHIFT ASSESSMENT BUT APPEARS TO BE IN NO S/S OF DISTRESS. THE SON HAS BEEN SLEEPING IN THE COT AT THE BEDSIDE ALL DAY BUT NOT ENGAGED IN ANY WAY WITH HIS FATHERS CARE. PT NEEDED MUCH ENCOURAGEMENT TO BE CHANGED AND REPOSTIONED AFTER BEING INC TODAY. DOCTOR IS AWARE OF PTS REFUSALS OF CARE.
--- NOTE | 2019-06-25 21:05 | NUR ---
PT AGREED TO VITAL SIGNS THIS EVENING AND WHEN ASKED AGREED TO TAKE HIS EVENING MEDICATIONS. ONCE SCANNED THIS RN ATTEMPTED TO ADMINISTER PT'S EVENING MEDS AND PT REFUSED TO TAKE THEM. PT ALSO REFUSED A BLOOD SUGAR CHECK AND ANY FURTHER ASSESSMENTS. WHEN ATTEMPTING PT TURNS IN BED AND PULLS COVERS OVER HIS BODY AND SAYS "NO".
--- NOTE | 2019-06-26 04:36 | NUR ---
SHIFT SUMMARY PT CONTINUES TO REFUSE ALMOST ALL CARE, ASSESSMENTS AND MEDICATIONS. WHEN WAS AT BEDSIDE AT START OF SHIFT PT AGREED TO LET HIS VITAL SIGNS BE DONE AND AGREED TO TAKE HIS MEDICATIONS. UPON RETURNING WITH MEDICATIONS PT'S HAD LEFT AND PT REFUSED TO TAKE HIS MEDICATIONS. FOLLOWING THIS PT REFUSED ASSESSMENT AND ANY FURTHER CARE. WHEN ATTEMPTING TO TALK TO PT HE MOSTLY STARED BLANKLY AT YOU, SOMETIMES RESPONDED WITH "WHAT?" OR "LEAVE ME ALONE". PT HAS BEEN INCONTINENT SO DID INSIST ON CHECKING BRIEF THROUGHOUT THE NIGHT. PT AT ONE POINT REMOVED HIS BRIEF AND URINATED IN THE BED. FULL BED CHANGE DONE AND SKIN WIPED DOWN. SON AT BEDSIDE, SLEPT MOST OF THE NIGHT, DID NOT INTERACT WITH STAFF. PT DEVELOPING RASH ON LOWER ABD AND SURESH AREA. ATTEMPTED TO EDUCATE PT ON NEED FOR GOOD SKIN CARE. PT UNRESPONSIVE TO EDUCATION. POWDER APPLIED TO SURESH AREA. VITAL SIGNS THAT PT DID ALLOW STABLE. PT DOES NOT APPEAR TO BE IN ANY ACUTE DISTRESS FROM BEDSIDE. BREATHING EVEN AND UNLABORED. NO S/S OF PAIN. WILL CONTINUE TO MONITOR.
--- NOTE | 2019-06-26 09:35 | NUR ---
Clinical Visit: Pt appears to be resting comfortably in bed. Breakfast tray is on overbed table and is not touched. No family at bedside at this time. Will review with doctor and technical healthcare consultant to determine direction of care and best approach to family conversation. Will follow up. Pt appropriate for comfort care and hospice. Will attempt another conversation re: code status with family. In prior conversations, they are resistant to making changes to code status and would like for him to remain full code since they believe that he will "snap out of it" and become well. Follow up with discussion with doc, caremangement, and family.
--- NOTE | 2019-06-26 16:09 | NUR ---
SHIFT SUMMARY: PT HAS BEEN AWAKE AND ALERT BUT CONTINUES TO REFUSE QUESTIONS TO ESTABLISH ORIENTATION. PT REFUSED ALL HIS MEDS AND HIS ASSESSMENT WELL HIS INSULIN, CHARGE NURSE AND DOCTOR ARE BOTH AWARE. THIS NURSE SPOKE WITH CARE MANAGEMENT TODAY WHO STATED THEY SPOKE WITH THE AND THERE IS A FAMILY MEMEBER WHO WILL BE TAKING THE PT HOME TOMORROW. PT HAS NO S/S OF DISTRESS. HE DOES NOT CALL FOR HELP AND CONTINUES TO BE INC AND NEEDS ENCOURAGEMENT TO TO BE TOILETED.
--- NOTE | 2019-06-27 01:08 | NUR ---
ATTEMPTED SEVERAL TIMES TO GIVE PATIENT HIS 2100 MEDICATIONS BUT HE REFUSED. HE ALSO REFUSED FOR ME TO DO AN ASSESSMENT ON HIM. I EVEN OFFERED WAYS THAT I COULD ASSESS HIM WHILE KEEPING HIM COVERED AN WARM BECAUSE HE DIDN'T WANT TO TAKE THE BLANKETS OFF BUT HE STILL WOULD NOT LET ME.
--- NOTE | 2019-06-27 05:42 | NUR ---
SHIFT SUMMARY PATIENT REFUSED ALL MEDS THIS SHIFT. HE WAS HIGHLY RESISTANT TO PERSONAL CARE FROM THE OPERATIONS ASSOCIATE. HE SLEPT WELL ALL NIGHT. BED IN LOWEST POSITION WITH WHEELS LOCKED. CALL LIGHT AND BELONGINGS WITHIN REACH. REPORT GIVEN TO ONCOMING RN.
[2019-06-27] MEDS ORDERED: Feverall650 MG PR (16:02)
[2019-06-27] MEDS ORDERED: Childrens160 MG/5 M PO (16:03)
[2019-06-27] MEDS ORDERED: Ativan1 MG PO (16:05)
[2019-06-27] MEDS ORDERED: ATROPINE SULFATE2 ML SL (16:05)
[2019-06-27] MEDS ORDERED: ONDA4ODT SL (16:06)
[2019-06-27] MEDS ORDERED: Transderm-Scop1 EACH TD (16:07)
--- NOTE | 2019-06-27 17:00 | NUR ---
DISCHARGE INSTRUCTIONS COMPLETED AND WENT WITH PT ON DISCHARGE. [facility] HERE TO PICK PT UP AT 1630. TO [facility] VIA W/C.
== END 2019-06-27 16:37 | disposition hospice, home (50) | DRG 441 ==
LOC: ER 10:34 → ICUE 10:35 → ICUW 10:35 → ICUE 13:33 → ICUW 06-10 15:54 → MEDS 06-10 16:33 → ICUE 06-10 16:33 → UNDODEPER 06-12 13:50 → MEDS 06-13 09:45 → ENPENDDIS 06-27 11:00 → MEDS 06-27 16:37
PROVIDERS: Emergency Medicine; Family Medicine; Internal Medicine; ADMIT Internal Medicine
DX: K72.90 Hepatic failure, unspecified without coma (principal); G92 Toxic encephalopathy; E87.2 Acidosis; E87.0 Hyperosmolality and hypernatremia; E46 Unspecified protein-calorie malnutrition; G93.1 Anoxic brain damage, not elsewhere classified; D64.9 Anemia, unspecified; K74.60 Unspecified cirrhosis of liver; I10 Essential (primary) hypertension; E11.649 Type 2 diabetes mellitus with hypoglycemia without coma; J32.0 Chronic maxillary sinusitis; G30.9 Alzheimer's disease, unspecified; F02.80 Dementia in other diseases classified elsewhere, unspecified severity, without behavioral disturbance, psychotic disturbance, mood disturbance, and anxiety; E78.00 Pure hypercholesterolemia, unspecified; Z78.1 Physical restraint status; Z79.02 Long term (current) use of antithrombotics/antiplatelets; Z79.4 Long term (current) use of insulin; Z79.899 Other long term (current) drug therapy; Z87.891 Personal history of nicotine dependence; Z68.31 Body mass index [BMI] 31.0-31.9, adult
CPT/HCPCS: 36415; 36430; 36600; 51701; 51702; 70450; 71045; 80047; 80048; 80053; 81001; 81003; 82140; 82272; 82607; 82728; 82746; 82803; 82947; 83540; 83550; 83605; 83735; 83880; 84100; 84145; 84443; 84478; 85014; 85018; 85025; 85027; 85651; 86140; 86850; 86900; 86901; 86923; 87040; 92526; 92610; 93005; 93010; 95819; 96374-59; 96375; 96376; 97110; 97162; 97530; 99285-25; C1751; C9113; G0378; G0480; J0360; J0696; J1940; J2060; J2310; J3411; J3475; J3480; J7050; J7120; P9016; P9046